=== PATIENT | female | born 1940 | race Caucasian/White ===

== ENCOUNTER 2019-05-07 12:47 | Inpatient (IN) ==
[2019-05-07] MEDS ORDERED: Acetaminophen 325 MG TABLET PO PRN (15:34)
[2019-05-07] MEDS ORDERED: Ondansetron 4 MG/2 ML VIAL IVP PRN (15:34)
[2019-05-07] MEDS ORDERED: Naloxone 0.4 MG/ML INJ IVP PRN (15:34)
[2019-05-07] MEDS ORDERED: Ringers Solution, Lactated 1,000 ML IVC SCH (15:45)
--- NOTE | 2019-05-07 15:49 | Internal Med History&Physical ---
Date of Encounter: 05/07/19 Time of Encounter: 15:00 Internal Medicine - H&P: HPI Chief complaint: Right elbow and hip fracture Admitted From: Direct Admit Plans for Post Hospital Care: Transfer Shelter Facility History of present illness: Ms. Wisdom is a 78 year old female with a past medical history of TIA, hypothyroidism, was brought to the [facility] from the outside hospital was because of the right elbow and the right hip fracture. Patient mentioned that he fell down in the morning as she was being slippery shoes, was on the floor for a long time, her grandson come to pick her up, took her to the hospital. She got the x-ray of the elbow which showed transverse fracture of the olecranon process. X-ray of the right hip showed subcapital transverse fracture of the right femoral neck. Distal fragment was displaced superiorly with respect to the proximal fragment. Patient was sent to the [facility] with consult from orthopedics. Patient is currently hemodynamically stable. The pain in the fracture site. Denies fever, chills, tinnitus. Denies chest pain, shortness of breath. Denies any previous medical history. Has been very healthy. Only takes levothyroxine at home. Is able to carry on her activities. Questionable history of congestive heart failure during one of the hospitalizations but is currently not on any medications. Patient laboratory reviewed. No gross lab abnormalities. Past Med Surg Social Fam HX - Past Medical History Medical history: TIA Additional medical history: TIA 2 weeks ago. hypothyroidism Psychiatric history: no psych history - Past Surgical History Surgical History: other Additional surgical history: Gastric bypass 30 years ago. L femur fracture with pinning. Cataracts removed. Lumbar fusion. R wrist surgery- fracture repaired - Social History Smoking Status: Never smoker Smokeless Tobacco Status: No Alcohol use: occasionally Drug use: none - Family History Brother Hx Family Musculoskeletal Disorders: Yes Internal Medicine - H&P: Meds Ascorbic Acid [Vitamin C] 1,000 mg PO DAILY 12/14/16 [History] Biotin 1 mg PO DAILY 12/14/16 [History] Calcium Carbonate [Calcium] 600 mg PO BID 12/14/16 [History] Levothyroxine [Synthroid] 125 mcg PO 0630 12/14/16 [History] Vit/Iron Fumarate/FA [ Tablet] 1 each PO DAILY 12/14/16 [History] Vitamin E Acid Succinate [Vitamin E] 400 units PO DAILY 12/14/16 [History] Allergy/AdvReac Type Severity Reaction Status Date / Time No Known Allergies Allergy Verified 12/14/16 08:11 All Systems PM: A 10-system review of systems was performed and is negative for pertinent findings except as documented above in the HPI. Review of systems: General: Negative for fever, chills, rigors. HEENT: Negative for neck swelling, discharge from nose, discharge from ears. EYES: Negative for any discharge from the eyes. Respiratory: Negative for shortness of breath, orthopnea, exertional dyspnea. Cardiovascular: Negative for chest pain, shortness of breath, orthopnea, PND. Gastrintestical: Negative for diarrhea, constipation, blood in stools. Genitourinary: Negative for dysuria, hematuria, nocturia, increased frequency of urine. Hematological: Negative for blood loss, negative for active cancer. Musculoskeltal: as per HPI Neurological: Negative for headache, dizziness, blurry vision, loss os power and sensations. Endocrinology: Negative for constipation, polyuria, polydipsia. Integumentary: Negative for rash, wounds, ulcers. Psychiatric: Negative for anxiety or depression. - Constitutional Vitals: Temp Pulse Resp BP 97.9 F 70 16 152/68 05/07/19 15:10 05/07/19 15:10 05/07/19 15:10 05/07/19 15:10 Exam: General: Alert and oriented, mild physical distress, able to follow commands. HEENT: No thyromegaly, no lymphadenopathy, no discharge. Eyes: No discharge. Normal conjuctiva, no icterus Respiratory: Normal vesicular breathing, no added sounds, breathing equal in both sides. CVS: Normal heart sounds, no murmurs, regular rhthm, no edema Extremities: No peripheral edema, peripheral pulses intact. Lymph nodes: No lymphadenopathy Musculoskeltal: Right arm wrapped, tenderness on palpation, range of motion limited because of the pain at the elbow joint. Right hip joint tenderness on lateral palpation. Range of motion limited because of the pain. Neurovascularly intact both upper and lower extremities Gastrointestinal: Soft, nontender abdomen, normal abdominal sounds. No distention noted. Genitourinary: No paravertebral tenderness. Neurological: Alert and oriented. No focal deficits. Cranial nerves II-XII intact. - Assessment and Plan (1) Elbow fracture, right Current Visit: Yes Status: Acute Assessment and plan: X-ray findings mentioned in history of present illness. Pain control. -Ortho on board patient currently nothing by mouth for any possible surgical interventions. Apreciate recommendations. Qualifiers: Encounter type: initial encounter Fracture type: closed Qualified Code(s): S42.401A - Unspecified fracture of lower end of right humerus, initial encounter for closed fracture (2) Femoral neck fracture Current Visit: Yes Status: Acute Assessment and plan: X-ray findings mentioned in the history of present illness. Pain control. Ortho on board. Patient is currently nothing by mouth for possible surgical interventions. Qualifiers: Encounter type: initial encounter Fracture type: closed Laterality: right Qualified Code(s): S72.001A - Fracture of unspecified part of neck of right femur, initial encounter for closed fracture (3) Hypothyroidism Current Visit: Yes Status: Acute Assessment and plan: Continue home dose of levothyroxine. Qualifiers: Hypothyroidism type: unspecified Qualified Code(s): E03.9 - Hypothyroidism, unspecified (4) DVT prophylaxis Current Visit: Yes Status: Acute Assessment and plan: Subcutaneous heparin (5) History of congestive heart disease Current Visit: Yes Status: Acute Assessment and plan: Questionable history of congestive heart failure. Currently not in decompensation. Takes no medication at home for congestive heart failure. Continue to monitor. - Time Spent With Patient Total time spent is greater than 50% in coordination of care (as documented) at patient's floor/unit and/or counseling patient:
[2019-05-07] MEDS: *HR* OxyCODONE Immed Rel 5 MG TABLET PO PRN (15:54)
[2019-05-07] MEDS: *HR* Heparin 5,000 UNIT/ML VIAL SQ SCH (17:16)
[2019-05-07] MEDS: *HR* HYDROcodone/Acet 5/325 mg TABLET PO PRN (19:20)
[2019-05-07] MEDS ORDERED: *HR* HYDROmorphone 2 MG TABLET PO ONE (20:57)
[2019-05-07 21:46] LABS: Basophils % 0.6 %; Hemoglobin 10.5 g/dL (11.5-15.4)
[2019-05-07 21:48] LABS: Basophils # 0.1 K/mcL (0.0-0.2); Eosinophils % 0.5 %; Hematocrit 32.5 % (35.3-44.9); Immature Granulocytes % 0.4 % (0-4); Immature Platelets 2.5 % (1.1-6.1); Lymphocytes # 0.9 K/mcL (0.6-4.6); Lymphocytes % 11.5 %; Mean Corpuscular HGB Conc 32.3 g/dL (31.6-35.5); Mean Corpuscular Hemoglobin 29.8 pg (28.0-33.3); Mean Corpuscular Volume 92.3 fL (83.0-100.0); Mean Platelet Volume 10.1 fL (9.4-12.4); Monocytes # 0.5 K/mcL (0.0-1.3); Monocytes % 6.7 %; Neutrophils # 6.3 K/mcL (1.6-8.9); Platelet Count 77 K/mcL (140-400); Red Blood Count 3.52 M/mcL (3.82-4.97); Red Cell Distribution Width 16.4 % (11.5-14.5); Segmented Neutrophils % 80.3 %; White Blood Count 7.8 K/mcL (4.3-11.1)
[2019-05-07 22:03] LABS: Alanine Aminotransferase 37 Units/L (7-52); Albumin/Globulin Ratio 0.9 (1.1-2.2); Alkaline Phosphatase 319 Units/L (34-104); Aspartate Amino Transferase 46 Units/L (13-39); BUN/Creatinine Ratio 19 (6-26); Bilirubin,Total 1.3 mg/dL (0.3-1.0); Blood Urea Nitrogen 18 mg/dL (8-23); Calcium 8.7 mg/dL (8.6-10.3); Carbon Dioxide 20 mEq/L (23-29); Chloride 110 mEq/L (98-107); Globulin 3.4 g/dL (2.4-3.5); Glucose 174 mg/dL (70-105); Osmolality,Calculated 282 (280-300); Potassium 4.1 mEq/L (3.5-5.1); Sodium 133 mEq/L (136-145); Total Protein 6.4 g/dL (6.4-8.9); eGFR For African Americans > 60 (> 60); eGFR For Non-African Americans 55 (> 60)
[2019-05-07 22:05] LABS: Platelet Estimate Decreased (Normal); Reactive Lymphocytes Present (Not Present); Toxic Granulation Present (Not Present)
--- NOTE | 2019-05-08 00:22 | Orthopedic Consult Note ---
Date of Encounter: 05/08/19 Time of Encounter: 00:17 History of Present Illness Chief complaint: Right elbow and right hip pain HPI: Ms. Young is a 78 year old [id number] female who sustained a mechanical fall resulting in injury to her right hip and right elbow. Patient presented initially to [facility] where x-rays taken revealed evidence of a right hip a right elbow fracture. She was transferred to [facility] to family patient's request for definitive orthopedic management. Patient denies other injuries. Patient denies dizziness vertigo blackouts etc. Reviewed the patient's completed medical record as well as the history and physical examination. Pertinent orthopedic examination reveals a pleasant 78-year-old woman in mild to moderate distress while lying in the hospital bed. Right upper extremity is in a long posterior splint. Distal neurosensory exam is grossly intact. Right lower extremity is shortened with minimal rotational deformity. Distal neurosensory exam is intact. I reviewed the right hip x-rays. This reveals a displaced right femoral neck fracture with marked shortening. X-rays of the right elbow reveal a comminuted and somewhat displaced fracture of the right olecranon. There is a large joint effusion. Impression: 1. Displaced right femoral neck fracture 2. Displaced, comminuted right olecranon fracture Recommendation: Discussed with the patient that both of these fractures will require surgical intervention for optimal treatment. I recommend a hemiart hroplasty of the right hip and ORIF of the right olecranon fracture. Discussed the surgical procedures as well as a surgical and nonoperative options available. I also discussed with the patient that I would not be available to proceed with the proposed surgery until . I am unavailable to proceed with the surgery today. I discussed with the patient and with the family who I spoke to via phone that we could see if another surgeon would be available to proceed with surgery on a more timely basis. The patient's daughter who has power of trademark attorney has requested that I proceed with the surgery with the time as noted on 05 09 2019. Thank you very much for allowing me to seen care for Mrs. Young. Sincerely, Abel James,DO Past Med Surg Social Fam HX - Past Medical History Medical history: TIA Additional medical history: TIA 2 weeks ago. hypothyroidism Psychiatric history: no psych history - Past Surgical History Surgical History: other Additional surgical history: Gastric bypass 30 years ago. L femur fracture with pinning. Cataracts removed. Lumbar fusion. R wrist surgery- fracture repaired - Social History Smoking Status: Never smoker Smokeless Tobacco Status: No Alcohol use: occasionally Drug use: none - Family History Brother Hx Family Musculoskeletal Disorders: Yes Medications and Allergies Ascorbic Acid [Vitamin C] 1,000 mg PO DAILY 12/14/16 [History] Biotin 1 mg PO DAILY 12/14/16 [History] Calcium Carbonate [Calcium] 600 mg PO BID 12/14/16 [History] Levothyroxine [Synthroid] 125 mcg PO 0630 12/14/16 [History] Vit/Iron Fumarate/FA [ Tablet] 1 each PO DAILY 12/14/16 [History] Vitamin E Acid Succinate [Vitamin E] 400 units PO DAILY 12/14/16 [History] Allergy/AdvReac Type Severity Reaction Status Date / Time No Known Allergies Allergy Verified 12/14/16 08:11 All Systems Reviewed: The remainder of the systems were reviewed and are negative Physical Exam - Constitutional Vitals: Temp Pulse Resp BP Pulse Ox 98.8 F 78 18 159/87 96 05/07/19 23:11 05/07/19 23:11 05/07/19 23:11 05/07/19 23:11 05/07/19 23:11 Results - Labs Result Diagrams: 05/07/19 21:20 05/07/19 21:20 Labs: Abnormal lab results RBC 3.52 M/mcL (3.82-4.97) L 05/07/19 21:20 Hgb 10.5 g/dL (11.5-15.4) L 05/07/19 21:20 Hct 32.5 % (35.3-44.9) L 05/07/19 21:20 RDW 16.4 % (11.5-14.5) H 05/07/19 21:20 Plt Count 77 K/mcL (140-400) L 05/07/19 21:20 Reactive Lymphocytes Present (Not Present) A 05/07/19 21:20 Toxic Granulation Present (Not Present) A 05/07/19 21:20 Platelet Estimate Decreased (Normal) L 05/07/19 21:20 Sodium 133 mEq/L (136-145) L 05/07/19 21:20 Chloride 110 mEq/L (98-107) H 05/07/19 21:20 Carbon Dioxide 20 mEq/L (23-29) L 05/07/19 21:20 Est GFR (Non-Af Amer) 55 (> 60) L 05/07/19 21:20 Glucose 174 mg/dL (70-105) H 05/07/19 21:20 Total Bilirubin 1.3 mg/dL (0.3-1.0) H 05/07/19 21:20 AST 46 Units/L (13-39) H 05/07/19 21:20 Alkaline Phosphatase 319 Units/L (34-104) H 05/07/19 21:20 B-Natriuretic Peptide 259 pg/mL (Less than 100) H 05/07/19 21:20 Albumin 3.0 g/dL (3.5-5.7) L 05/07/19 21:20 Albumin/Globulin Ratio 0.9 (1.1-2.2) L 05/07/19 21:20 H & H 05/07/19 Range/Units 21:20 Hgb 10.5 L (11.5-15.4) g/dL Hct 32.5 L (35.3-44.9) % All other labs normal. - Diagnostic results Elbow x-ray: image reviewed Hip x-ray: image reviewed Consult Discharge Plan - Plan Referrals: aMrcus Mendoza DO [Primary Care Provider] -
[2019-05-08] MEDS: *HR* OxyCODONE Immed Rel 5 MG TABLET PO PRN ×3 (01:43→21:29)
[2019-05-08] MEDS: *HR* Heparin 5,000 UNIT/ML VIAL SQ SCH ×2 (05:35→19:23)
[2019-05-08 06:44] LABS: BUN/Creatinine Ratio 23 (6-26); Blood Urea Nitrogen 19 mg/dL (8-23); Calcium 8.6 mg/dL (8.6-10.3); Carbon Dioxide 21 mEq/L (23-29); Chloride 108 mEq/L (98-107); Glucose 125 mg/dL (70-105); Magnesium 1.7 mg/dL (1.6-2.6); Osmolality,Calculated 288 (280-300); Potassium 4.7 mEq/L (3.5-5.1); Sodium 137 mEq/L (136-145); eGFR For African Americans > 60 (> 60); eGFR For Non-African Americans > 60 (> 60)
[2019-05-08] MEDS ORDERED: cloNIDine HCl 0.1 MG TABLET PO PRN (07:51)
[2019-05-08] MEDS ORDERED: NON-FORMULARY MEDICATION 1 EACH EACH (Biotin 1 MG) PO SCH (09:00)
[2019-05-08] MEDS: Prenatal Vit/FA 1 EACH TABLET PO SCH (09:02)
[2019-05-08] MEDS: Ascorbic Acid 500 MG TABLET PO SCH (09:02)
[2019-05-08] MEDS: Vitamin E 200 UNIT (90MG) CAPSULE PO SCH (09:02)
[2019-05-08 09:29] LABS: Red Blood Count 3.46 M/mcL (3.82-4.97)
[2019-05-08 09:30] LABS: Basophils % 0.5 %; Eosinophils # 0.1 K/mcL (0.0-0.6); Hematocrit 31.7 % (35.3-44.9); Hemoglobin 10.4 g/dL (11.5-15.4); Immature Granulocytes % 0.3 % (0-4); Immature Platelets 2.7 % (1.1-6.1); Lymphocytes # 1.1 K/mcL (0.6-4.6); Mean Corpuscular HGB Conc 32.8 g/dL (31.6-35.5); Mean Corpuscular Hemoglobin 30.1 pg (28.0-33.3); Mean Corpuscular Volume 91.6 fL (83.0-100.0); Mean Platelet Volume 10.2 fL (9.4-12.4); Monocytes # 0.8 K/mcL (0.0-1.3); Monocytes % 9.9 %; Neutrophils # 5.7 K/mcL (1.6-8.9); Red Cell Distribution Width 16.1 % (11.5-14.5); Segmented Neutrophils % 74.3 %; White Blood Count 7.7 K/mcL (4.3-11.1)
[2019-05-08 09:34] LABS: Platelet Count 69 K/mcL (140-400)
--- NOTE | 2019-05-08 12:30 | Internal Med Progress Note ---
Hospitalist Progress Note - Encounter Date of Encounter: 05/08/19 Time of Encounter: 10:00 - Subjective Interval History: Seen at bedside. Mentions that the pain is under control. Plan for the surgery tomorrow. Blood pressure was found to be high but the patient denies any headache, double vision. Denies chest pain, shortness of breath. - Exam Vitals: Temp Pulse Resp BP Pulse Ox 98.1 F 70 16 170/81 96 05/08/19 06:50 05/08/19 06:50 05/08/19 06:50 05/08/19 06:50 05/08/19 06:50 Exam: General: Alert and oriented, mild physical distress, able to follow commands. Respiratory: Normal vesicular breathing, no added sounds, breathing equal in both sides. CVS: Normal heart sounds, no murmurs, regular rhthm, no edema Extremities: No peripheral edema, peripheral pulses intact. Lymph nodes: No lymphadenopathy Musculoskeltal: Right arm wrapped, tenderness on palpation, range of motion limited because of the pain at the elbow joint. Right hip joint tenderness on lateral palpation. Range of motion limited because of the pain. Neurovascularly intact both upper and lower extremities Gastrointestinal: Soft, nontender abdomen, normal abdominal sounds. No distention noted. Genitourinary: No paravertebral tenderness. Neurological: Alert and oriented. No focal deficits. Cranial nerves II-XII intact. - Assessment and Plan (1) Elbow fracture, right Current Visit: Yes Status: Acute Assessment and Plan: X-ray of the right elbow reveal a comminuted and displaced fracture of the right olecranon. Pain control. -Ortho on board. Plan for surgery tomorrow -NPO after midnight (2) Femoral neck fracture Current Visit: Yes Status: Acute Assessment and Plan: X-ray reveals a displaced right femoral neck fracture Pain control. Ortho on board. Plan for surgery tomorrow NPO post midnith (3) Hypothyroidism Current Visit: Yes Status: Acute Assessment and Plan: Continue home dose of levothyroxine. (4) DVT prophylaxis Current Visit: Yes Status: Acute Assessment and Plan: Subcutaneous heparin (5) History of congestive heart disease Current Visit: Yes Status: Acute Assessment and Plan: Questionable history of congestive heart failure. Currently not in decompensation. Takes no medication at home for congestive heart failure. Continue to monitor. (6) Elevated blood pressure reading Current Visit: Yes Status: Acute Assessment and Plan: -blood pressure has been high in the hospital. Does not have any hx of hypertension COuld be related to the pain Clonidine as needed for elevated blood pressure - Time Spent with Patient Total time spent is greater than 50% in coordination of care (as documented) at patient's floor/unit and/or counseling patient: Internal Medicine: Result - Labs CBC & Chem 7: 05/08/19 08:50 05/08/19 06:10 Labs: Short CBC 05/07/19 05/08/19 Range/Units 21:20 08:50 WBC 7.8 7.7 (4.3-11.1) K/mcL Hgb 10.5 L 10.4 L (11.5-15.4) g/dL Hct 32.5 L 31.7 L (35.3-44.9) % Plt Count 77 L 69 L (140-400) K/mcL Neutrophils # 6.3 5.7 (1.6-8.9) K/mcL BMP 05/07/19 05/08/19 21:20 06:10 Sodium 133 L 137 Potassium 4.1 4.7 Chloride 110 H 108 H Carbon Dioxide 20 L 21 L BUN 18 19 Creatinine 0.97 0.83 Glucose 174 H 125 H Calcium 8.7 8.6 Liver Function 05/07/19 Range/Units 21:20 Total Bilirubin 1.3 H (0.3-1.0) mg/dL AST 46 H (13-39) Units/L ALT 37 (7-52) Units/L Alkaline Phosphatase 319 H (34-104) Units/L Albumin 3.0 L (3.5-5.7) g/dL - Impressions Impressions Ribs X-Ray 05/07/19 21:32 IMPRESSION: No acute right-sided rib fractures are seen. D/ / Humphrey Luz MD / Humphrey Luz MD Interpreting Provider: Humphrey Luz MD Consult Discharge Plan - Plan Referrals: Marcus Mendoza DO [Primary Care Provider] - (1) Elbow fracture, right Qualifiers: Encounter type: initial encounter Fracture type: closed Qualified Code(s): S42.401A - Unspecified fracture of lower end of right humerus, initial encounter for closed fracture (2) Femoral neck fracture Qualifiers: Encounter type: initial encounter Fracture type: closed Laterality: right Qualified Code(s): S72.001A - Fracture of unspecified part of neck of right femur, initial encounter for closed fracture (3) Hypothyroidism Qualifiers: Hypothyroidism type: unspecified Qualified Code(s): E03.9 - Hypothyroidism, unspecified
[2019-05-08] MEDS: *HR* HYDROcodone/Acet 5/325 mg TABLET PO PRN (13:46)
--- NOTE | 2019-05-08 23:14 | Orthopedics Progress Note ---
Date of Encounter: 05/08/19 Time of Encounter: 23:11 Subjective Principal diagnosis: Displaced right femoral neck fracture and displaced right olecranon fractur Interval history: 05/08/2019. Patient is having anticipated pain. No significant interval change. Vital signs are stable. Patient is afebrile. Examination remains stable and unchanged. Laboratory data includes a stable hemoglobin, however, patient's platelet count remains low currently at 69,000. Impression: 1. Displaced right femoral neck fracture 2. Displaced right olecranon fracture 3. Thrombocytopenia Recommendation: Anticipate surgery tomorrow. This would include ORIF of the olecranon as well as a hemiarthroplasty of the right hip. We will need to reevaluate the platelet count in the morning. May need to cancel her delay surgery depending upon her platelet count with the possibility of requiring platelet transfusion. Objective Vital signs: Vital Signs Temp Pulse Resp BP Pulse Ox 05/08/19 18:54 99.1 F 72 16 130/75 98 05/08/19 18:20 98.7 F 71 20 123/66 96 05/08/19 06:50 98.1 F 70 16 170/81 96 05/08/19 03:36 98.8 F 66 17 152/82 96 Intake and Output 05/08/19 05/08/19 05/08/19 07:59 15:59 23:59 Output Total 600 / 1100 500 / 1100 Balance -600 / -1100 -500 / -1100 Output: Catheter 600 / 1100 500 / 1100 - Labs CBC & BMP: 05/08/19 08:50 05/08/19 06:10 Labs: Abnormal lab results RBC 3.46 M/mcL (3.82-4.97) L 05/08/19 08:50 Hgb 10.4 g/dL (11.5-15.4) L 05/08/19 08:50 Hct 31.7 % (35.3-44.9) L 05/08/19 08:50 RDW 16.1 % (11.5-14.5) H 05/08/19 08:50 Plt Count 69 K/mcL (140-400) L 05/08/19 08:50 Reactive Lymphocytes Present (Not Present) A 05/07/19 21:20 Toxic Granulation Present (Not Present) A 05/07/19 21:20 Platelet Estimate Decreased (Normal) L 05/07/19 21:20 Sodium 133 mEq/L (136-145) L 05/07/19 21:20 Chloride 108 mEq/L (98-107) H 05/08/19 06:10 Carbon Dioxide 21 mEq/L (23-29) L 05/08/19 06:10 Est GFR (Non-Af Amer) 55 (> 60) L 05/07/19 21:20 Glucose 125 mg/dL (70-105) H 05/08/19 06:10 Total Bilirubin 1.3 mg/dL (0.3-1.0) H 05/07/19 21:20 AST 46 Units/L (13-39) H 05/07/19 21:20 Alkaline Phosphatase 319 Units/L (34-104) H 05/07/19 21:20 B-Natriuretic Peptide 259 pg/mL (Less than 100) H 05/07/19 21:20 Albumin 3.0 g/dL (3.5-5.7) L 05/07/19 21:20 Albumin/Globulin Ratio 0.9 (1.1-2.2) L 05/07/19 21:20 - VTE Documentation of Mechanical Device: Intermittent pneumatic compression device Consult Discharge Plan - Plan Referrals: Marcus Mendoza DO [Primary Care Provider] -
[2019-05-09] MEDS: *HR* Heparin 5,000 UNIT/ML VIAL SQ SCH (04:55)
[2019-05-09 06:01] LABS: Segmented Neutrophils % 68.4 %
[2019-05-09 06:03] LABS: Basophils # 0.1 K/mcL (0.0-0.2); Basophils % 0.6 %; Eosinophils # 0.3 K/mcL (0.0-0.6); Eosinophils % 3.5 %; Hematocrit 31.8 % (35.3-44.9); Hemoglobin 10.4 g/dL (11.5-15.4); Immature Granulocytes % 0.5 % (0-4); Immature Platelets 3.3 % (1.1-6.1); Lymphocytes # 1.3 K/mcL (0.6-4.6); Lymphocytes % 15.6 %; Mean Corpuscular HGB Conc 32.7 g/dL (31.6-35.5); Mean Corpuscular Hemoglobin 29.9 pg (28.0-33.3); Mean Corpuscular Volume 91.4 fL (83.0-100.0); Monocytes # 0.9 K/mcL (0.0-1.3); Monocytes % 11.4 %; Neutrophils # 5.6 K/mcL (1.6-8.9); Red Blood Count 3.48 M/mcL (3.82-4.97); White Blood Count 8.2 K/mcL (4.3-11.1)
[2019-05-09 06:14] LABS: Platelet Count 65 K/mcL (140-400)
[2019-05-09] MEDS: Prenatal Vit/FA 1 EACH TABLET PO SCH (08:16)
[2019-05-09] MEDS: Ascorbic Acid 500 MG TABLET PO SCH (08:16)
[2019-05-09] MEDS: Vitamin E 200 UNIT (90MG) CAPSULE PO SCH (08:16)
[2019-05-09] MEDS: *HR* OxyCODONE Immed Rel 5 MG TABLET PO PRN ×2 (08:20→21:15)
[2019-05-09] MEDS ORDERED: 0.9 % Sodium Chloride 250 ML IVC SCH (09:30)
[2019-05-09 09:32] LABS: Immature Reticulocyte % 14.7 % (11.0-38.0); Retculocyte # 0.08 M/mcL (0.05-0.10); Reticulocyte % 2.1 % (1.6-2.8)
--- NOTE | 2019-05-09 09:36 | Oncology Inp Consult Note ---
<Bethany Sommers M - Last Filed: 05/09/19 17:55> Date of Encounter: 05/09/19 Time of Encounter: 09:32 Assessment and Plan (1) Thrombocytopenia Status: Acute Assessment and plan: Plts 65,000 today. Requiring ortho surgery for fracture of right femoral neck. 2017 platelet 112,000 Plan: Labs ordered: LDH, haptoglobin, retic PT/INR, PTT, fibrinogen/D-dimer peripheral smear Hepatitis panel B12 and folate. Imaging ordered: abdominal ultrasound of liver and spleen 2 units platelet ordered for today. Patient denies history of blood or platelet transfusion in the past. - Data of Consult Patient: new to practice Requesting Physician: Weston Long Primary Care Provider: Marcus Mendoza DO - Consult Narrative Reason for consult: thrombocytopenia History of present illness: Ms. Wisdom, 78 yo female with known history of TIA, HTN, and hypothyroidism, presented to [facility] ([facility]) after she slipped and fell on her right side. The x-ray of her right elbow noted a transverse fracture of the olecranon process and her xray of the pelvis noted a subcapital transverse fract ure of the right femoral neck. She was transferred to [facility] for an orthopedic consult on 05/07/19. During routine labs, it was noted that she had thrombocytopenia with PLTS 77,000. Repeat labs this morning note a drop in platelets to 65,000. Hematology/Oncology was consulted for recommendations of thrombocytopenia due to need for orthopedic procedure. Sharla is awake and alert in bed this morning. She notes that she has a poor memory and unable to contribute much to her medical history. She does confirm that she has a history of high blood pressure, but does not require medication any longer. She also can describe her slip while getting up for the table to retrieve her morning medications. Sharla notes that she did have a fall on ice a few years ago and had a left femur fracture. She states that her pain is controlled after her pain medication one hour ago. Sharla notes that her daughter will return this afternoon and she can assist with her medical history. Discussed recommendations for platelet transfusion today. She is agreeable to transfusion and denies previous transfusion history. Social history: Denies tobacco or illicit drug use. Does have an occasional alcoholic beverage. Lives in [place], [place] with daughter. PCP: Dr. Mendoza in [place] Past Med Surg Social Fam HX - Past Medical History Medical history: TIA Additional medical history: TIA 2 weeks ago. hypothyroidism Psychiatric history: no psych history - Past Surgical History Surgical History: other Additional surgical history: Gastric bypass 30 years ago. L femur fracture with pinning. Cataracts removed. Lumbar fusion. R wrist surgery- fracture repaired - Social History Smoking Status: Never smoker Smokeless Tobacco Status: No Alcohol use: occasionally Drug use: none - Family History Brother Hx Family Musculoskeletal Disorders: Yes Medications and Allergies Ascorbic Acid [Vitamin C] 1,000 mg PO DAILY 12/14/16 [History] Biotin 1 mg PO DAILY 12/14/16 [History] Calcium Carbonate [Calcium] 600 mg PO BID 12/14/16 [History] Vit/Iron Fumarate/FA [ Tablet] 1 each PO DAILY 12/14/16 [History] Vitamin E Acid Succinate [Vitamin E] 400 units PO DAILY 12/14/16 [History] Cyanocobalamin (B-12) [Vitamin B12] 1,000 mcg IM QMONTH 05/08/19 [History] Levothyroxine [Synthroid] 125 mcg PO 0630 05/08/19 [History] Allergy/AdvReac Type Severity Reaction Status Date / Time No Known Allergies Allergy Verified 05/08/19 09:40 Constitutional: Absent: chills, fatigue, fever(s) Cardiovascular: Absent: chest pain, dyspnea Respiratory: Absent: cough, dyspnea Gastrointestinal: Absent: abdominal pain, constipation, diarrhea, nausea, vomiting Additional comments: Right hip pain due to femur fracture and right elbow pain Additional comments: easy bruising Oncology - Exam - Constitutional General appearance: no acute distress, thin - Respiratory Respiratory exam: Present: CTAB - Cardiovascular Cardiovascular exam: Present: RRR Additional comments: murmur detected - GI/Abdominal GI/Abdominal exam: Present: normal bowel sounds, soft. Absent: tenderness - Extremities Exam Extremities exam: Absent: pedal edema - Neurological Exam Neurological exam: Present: alert, oriented X3 - Psychiatric Psychiatric exam: Present: normal affect, normal mood - Skin Skin exam: Present: pallor, warm Additional comments: LUE bruising Oncology Inpatient Results Labs: Laboratory Results - last 24 hr 05/09/19 05/09/19 05/09/19 05:09 07:18 09:12 WBC 8.2 RBC 3.48 L Hgb 10.4 L Hct 31.8 L MCV 91.4 MCH 29.9 MCHC 32.7 RDW 16.0 H Plt Count 65 L MPV 11.0 Reticulocyte # 0.08 Immature Gran % 0.5 Seg Neutrophils % 68.4 Lymphocytes % 15.6 Monocytes % 11.4 Eosinophils % 3.5 Basophils % 0.6 Neutrophils # 5.6 Lymphocytes # 1.3 Monocytes # 0.9 Eosinophils # 0.3 Basophils # 0.1 Immature Plt Fraction 3.3 Smear Path Review See Below Percent Retic 2.1 Immature Retic Fraction 14.7 Retic Hgb Equivalent 33.1 PT INR APTT Fibrinogen D-Dimer Lactate Dehydrogenase Vitamin B12 Folate Hepatitis A IgM Ab Hep Bs Antigen Hep B Core IgM Ab Hepatitis C Ab Screen Blood Type A POSITIVE Antibody Screen NEGATIVE Direct Antiglob Test DAVID, Poly Interpret 05/09/19 05/09/19 05/09/19 09:12 09:12 09:12 WBC RBC Hgb Hct MCV MCH MCHC RDW Plt Count MPV Reticulocyte # Immature Gran % Seg Neutrophils % Lymphocytes % Monocytes % Eosinophils % Basophils % Neutrophils # Lymphocytes # Monocytes # Eosinophils # Basophils # Immature Plt Fraction Smear Path Review Percent Retic Immature Retic Fraction Retic Hgb Equivalent PT 11.8 INR 1.0 APTT 28.3 Fibrinogen 469 H D-Dimer 4706 H Lactate Dehydrogenase 145 Vitamin B12 710 Folate > 22.3 H Hepatitis A IgM Ab Nonreactive Hep Bs Antigen Nonreactive Hep B Core IgM Ab Nonreactive Hepatitis C Ab Screen Nonreactive Blood Type Antibody Screen Direct Antiglob Test DAVID, Poly Interpret 05/09/19 09:12 WBC RBC Hgb Hct MCV MCH MCHC RDW Plt Count MPV Reticulocyte # Immature Gran % Seg Neutrophils % Lymphocytes % Monocytes % Eosinophils % Basophils % Neutrophils # Lymphocytes # Monocytes # Eosinophils # Basophils # Immature Plt Fraction Smear Path Review Percent Retic Immature Retic Fraction Retic Hgb Equivalent PT INR APTT Fibrinogen D-Dimer Lactate Dehydrogenase Vitamin B12 Folate Hepatitis A IgM Ab Hep Bs Antigen Hep B Core IgM Ab Hepatitis C Ab Screen Blood Type Antibody Screen Direct Antiglob Test 1+ A DAVID, Poly Interpret 1+ Ribs X-Ray 05/07/19 21:32 IMPRESSION: No acute right-sided rib fractures are seen. D/ / Humphrey Luz MD / Humphrey Luz MD Interpreting Provider: Humphrey Luz MD Abdomen Ultrasound 05/09/19 13:30 IMPRESSION: 1. Technically limited secondary to patient's immobility. 2. Splenomegaly. 3. Heterogeneous liver which can be seen in hepatocellular disease. 4. Cholecystectomy. The common bile duct is mildly prominent measuring 10 mm. D/ / 05/09/2019 14:23:13 Marlena García MD / [facility] Interpreting Provider: Marlena García MD Consult Discharge Plan - Plan Referrals: Marcus Mendoza DO [Primary Care Provider] - Inpatient Charges Provider: Dr. Juan Monzon <Amy Monzon - Last Filed: 05/10/19 06:34> Date of Encounter: 05/10/19 - Data of Consult Requesting Physician: Weston Long Primary Care Provider: Marcus Mendoza DO - Consult Narrative History of present illness: Patient with thrombocytopenia, cirrhosis on imagingand splenomegaly with recent fall and fracture needing surgery. Anemia multifactorial, transfuse blood products prior to planned surgical procedure to keep platelt at desired levels for hemostasis. Coag panel nl. Plan scope outpatient to further evaluate cirrhosis splenomegaly. I examined this patient and my medical decision-making was reviewed with the Advanced Practice Nurse, Bethany Sommers. I agree with the documented findings, disposition and treatment plan as described except to the extent set forth below.
[2019-05-09 10:29] LABS: Prothrombin Time 11.8 Seconds (9.4-12.1)
[2019-05-09 10:31] LABS: Activated Partial Thrombo Time 28.3 Seconds (26.0-36.0)
[2019-05-09 10:35] LABS: Folate > 22.3 ng/mL (3.0-16.0); Vitamin B12 710 pg/mL (250-1100)
[2019-05-09] MEDS ORDERED: 0.9 % Sodium Chloride 250 ML ONE ×2 (10:52→16:24)
--- NOTE | 2019-05-09 12:02 | Internal Med Progress Note ---
Hospitalist Progress Note - Encounter Date of Encounter: 05/09/19 Time of Encounter: 09:00 - Subjective Interval History: She was seen at bedside. Mentioned that the pain is well controlled. Patient platelet count continues to be low. Oncology was consulted overnight. Denies fever, chills, rigors. He was initially scheduled to get surgery today but because of the platelet count, might have to get delayed until tomorrow. No other overnight events. - Exam Vitals: Temp Pulse Resp BP Pulse Ox 98.8 F 61 16 110/61 98 05/09/19 11:25 05/09/19 11:25 05/09/19 11:25 05/09/19 11:25 05/09/19 11:25 Exam: General: Alert and oriented, mild physical distress, able to follow commands. Respiratory: Normal vesicular breathing, no added sounds, breathing equal in both sides. CVS: Normal heart sounds, no murmurs, regular rhthm, no edema Extremities: No peripheral edema, peripheral pulses intact. Lymph nodes: No lymphadenopathy Musculoskeltal: Right arm wrapped, tenderness on palpation, range of motion limited because of the pain at the elbow joint. Right hip joint tenderness on lateral palpation. Range of motion limited because of the pain. Neurovascu larly intact both upper and lower extremities Gastrointestinal: Soft, nontender abdomen, normal abdominal sounds. No distention noted. Genitourinary: No paravertebral tenderness. Neurological: Alert and oriented. No focal deficits. Cranial nerves II-XII intact. - Assessment and Plan (1) Elbow fracture, right Current Visit: Yes Status: Acute Assessment and Plan: X-ray of the right elbow reveal a comminuted and displaced fracture of the right olecranon. Pain control. -Ortho on board. -Likely to get the surgery after the evaluation regarding a thrombocytopenia. (2) Femoral neck fracture Current Visit: Yes Status: Acute Assessment and Plan: X-ray reveals a displaced right femoral neck fracture Pain control. Ortho on board. Likely to get surgery following evaluation regarding thrombocytopenia (3) Hypothyroidism Current Visit: Yes Status: Acute Assessment and Plan: Continue home dose of levothyroxine. (4) DVT prophylaxis Current Visit: Yes Status: Acute Assessment and Plan: Subcutaneous heparin (5) History of congestive heart disease Current Visit: Yes Status: Acute Assessment and Plan: Questionable history of congestive heart failure. Currently not in decompensation. Takes no medication at home for congestive heart failure. Continue to monitor. (6) Elevated blood pressure reading Current Visit: Yes Status: Acute Assessment and Plan: -Blood pressure is stable. No Interventions. (7) Thrombocytopenia Current Visit: Yes Status: Acute Assessment and Plan: [place] [address] [place]. Oncology was consulted, labwork was ordered by the oncology. Patient may get2 units of pooled plateles today as per oncology recommendations. If the patient platelet count remained stable, likely surgery tomorrow. Abdominal ultrasound of the liver and spleen has been ordered. - Time Spent with Patient Total time spent is greater than 50% in coordination of care (as documented) at patient's floor/unit and/or counseling patient: Internal Medicine: Result - Labs CBC & Chem 7: 05/09/19 05:09 05/08/19 06:10 Labs: Short CBC 05/09/19 Range/Units 05:09 WBC 8.2 (4.3-11.1) K/mcL Hgb 10.4 L (11.5-15.4) g/dL Hct 31.8 L (35.3-44.9) % Plt Count 65 L (140-400) K/mcL Neutrophils # 5.6 (1.6-8.9) K/mcL - ABG Interpretation ABG results: PT/INR, D-dimer PT 11.8 Seconds (9.4-12.1) 05/09/19 09:12 D-Dimer 4706 ng/mLFEU (0-500) H 05/09/19 09:12 - VTE Documentation of Mechanical Device: Intermittent pneumatic compression device Consult Discharge Plan - Plan Referrals: Marcus Mendoza DO [Primary Care Provider] - (1) Elbow fracture, right Qualifiers: Encounter type: initial encounter Fracture type: closed Qualified Code(s): S42.401A - Unspecified fracture of lower end of right humerus, initial encounter for closed fracture (2) Femoral neck fracture Qualifiers: Encounter type: initial encounter Fracture type: closed Laterality: right Qualified Code(s): S72.001A - Fracture of unspecified part of neck of right femur, initial encounter for closed fracture (3) Hypothyroidism Qualifiers: Hypothyroidism type: unspecified Qualified Code(s): E03.9 - Hypothyroidism, unspecified
[2019-05-09 13:04] LABS: Hepatitis B Surface Antigen Nonreactive (Nonreactive)
[2019-05-09 13:33] LABS: Hepatitis C Virus Antibody Nonreactive (Nonreactive)
[2019-05-09 13:34] LABS: Hepatitis B Core IgM Nonreactive (Nonreactive)
[2019-05-09 13:37] LABS: Hepatitis A Antibody IgM Nonreactive (Nonreactive)
[2019-05-09 22:23] LABS: Basophils % 0.2 %; Eosinophils # 0.1 K/mcL (0.0-0.6); Eosinophils % 1.5 %; Hematocrit 29.4 % (35.3-44.9); Hemoglobin 9.5 g/dL (11.5-15.4); Immature Granulocytes % 0.4 % (0-4); Lymphocytes # 1.1 K/mcL (0.6-4.6); Lymphocytes % 12.2 %; Mean Corpuscular HGB Conc 32.3 g/dL (31.6-35.5); Mean Corpuscular Hemoglobin 30.3 pg (28.0-33.3); Mean Corpuscular Volume 93.6 fL (83.0-100.0); Mean Platelet Volume 10.5 fL (9.4-12.4); Monocytes % 11.1 %; Neutrophils # 6.8 K/mcL (1.6-8.9); Platelet Count 93 K/mcL (140-400); Red Blood Count 3.14 M/mcL (3.82-4.97); Red Cell Distribution Width 15.8 % (11.5-14.5); Segmented Neutrophils % 74.6 %; White Blood Count 9.1 K/mcL (4.3-11.1)
--- NOTE | 2019-05-10 00:32 | Orthopedics Progress Note ---
Date of Encounter: 05/10/19 Time of Encounter: 00:29 Subjective Principal diagnosis: Displaced right femoral neck fracture and displaced right olecranon fractur Interval history: 05/08/2019. Patient is having anticipated pain. No significant interval change. Vital signs are stable. Patient is afebrile. Examination remains stable and unchanged. Laboratory data includes a stable hemoglobin, however, patient's platelet count remains low currently at 69,000. Impression: 1. Displaced right femoral neck fracture 2. Displaced right olecranon fracture 3. Thrombocytopenia Recommendation: Anticipate surgery tomorrow. This would include ORIF of the olecranon as well as a hemiarthroplasty of the right hip. We will need to reevaluate the platelet count in the morning. May need to cancel her delay surgery depending upon her platelet count with the possibility of requiring platelet transfusion. 05/09/2019. Surgery was canceled due to thrombocytopenia. Patient has been seen and evaluated by he involved. Patient did receive 2 units of platelets with a increase in platelet count from 66-93. Hemoglobin has unfortunately dropped from 10.5-9.5 in this interval. We will reevaluate platelet count in a.m. Tentatively for surgery tomorrow. Surgery will include both ORIF of the right olecranon as well as a hemiarthroplasty of the right hip. Objective Vital signs: Vital Signs Temp Pulse Resp BP Pulse Ox 05/10/19 00:19 98.3 F 73 132/75 98 05/09/19 20:33 98.8 F 70 115/61 96 05/09/19 19:41 98.9 F 75 15 128/68 93 05/09/19 16:55 99.2 F 76 17 101/47 95 05/09/19 16:40 100.2 F H 78 16 102/55 94 05/09/19 14:30 98.1 F 69 16 136/81 98 05/09/19 11:25 98.8 F 61 16 110/61 98 05/09/19 11:10 98.3 F 77 16 93/47 100 05/09/19 07:01 99.2 F 71 16 158/69 96 05/09/19 04:31 99.5 F 05/09/19 03:49 95.5 F L 70 18 142/70 94 Intake and Output 05/09/19 05/09/19 05/10/19 15:59 23:59 07:59 Intake Total 450 / 1615 1165 / 1615 0 / 0 Output Total 700 / 950 325 / 325 Balance 450 / 665 465 / 665 -325 / -325 Intake: Oral 840 / 840 0 / 0 Blood Product 450 / 775 325 / 775 Platelet Ph Acd-A Pasc Lp 2 325 / 325 Unit [id number] Platelet Pheresis Lp Unit 450 / 450 [id number] Output: Catheter 700 / 950 325 / 325 Other: Meal Dinner Percent of Meal Consumed 50% - Labs CBC & BMP: 05/09/19 21:59 05/08/19 06:10 Labs: Abnormal lab results RBC 3.14 M/mcL (3.82-4.97) L 05/09/19 21:59 Hgb 9.5 g/dL (11.5-15.4) L 05/09/19 21:59 Hct 29.4 % (35.3-44.9) L 05/09/19 21:59 RDW 15.8 % (11.5-14.5) H 05/09/19 21:59 Plt Count 93 K/mcL (140-400) L 05/09/19 21:59 Reactive Lymphocytes Present (Not Present) A 05/07/19 21:20 Toxic Granulation Present (Not Present) A 05/07/19 21:20 Platelet Estimate Decreased (Normal) L 05/07/19 21:20 Fibrinogen 469 mg/dL (169-393) H 05/09/19 09:12 D-Dimer 4706 ng/mLFEU (0-500) H 05/09/19 09:12 Sodium 133 mEq/L (136-145) L 05/07/19 21:20 Chloride 108 mEq/L (98-107) H 05/08/19 06:10 Carbon Dioxide 21 mEq/L (23-29) L 05/08/19 06:10 Est GFR (Non-Af Amer) 55 (> 60) L 05/07/19 21:20 Glucose 125 mg/dL (70-105) H 05/08/19 06:10 Total Bilirubin 1.3 mg/dL (0.3-1.0) H 05/07/19 21:20 AST 46 Units/L (13-39) H 05/07/19 21:20 Alkaline Phosphatase 319 Units/L (34-104) H 05/07/19 21:20 B-Natriuretic Peptide 259 pg/mL (Less than 100) H 05/07/19 21:20 Albumin 3.0 g/dL (3.5-5.7) L 05/07/19 21:20 Albumin/Globulin Ratio 0.9 (1.1-2.2) L 05/07/19 21:20 Folate > 22.3 ng/mL (3.0-16.0) H 05/09/19 09:12 Direct Antiglob Test 1+ (Negative) A 05/09/19 09:12 - VTE Documentation of Mechanical Device: Intermittent pneumatic compression device Consult Discharge Plan - Plan Referrals: Marcus Mendoza DO [Primary Care Provider] -
[2019-05-10 02:45] LABS: Hematocrit 30.1 % (35.3-44.9)
[2019-05-10 02:47] LABS: Hemoglobin 9.6 g/dL (11.5-15.4); Immature Platelets 3.7 % (1.1-6.1); Mean Corpuscular HGB Conc 31.9 g/dL (31.6-35.5); Mean Corpuscular Hemoglobin 29.5 pg (28.0-33.3); Mean Corpuscular Volume 92.6 fL (83.0-100.0); Mean Platelet Volume 11.3 fL (9.4-12.4); Red Blood Count 3.25 M/mcL (3.82-4.97); Red Cell Distribution Width 15.7 % (11.5-14.5)
[2019-05-10 03:05] LABS: BUN/Creatinine Ratio 30 (6-26); Blood Urea Nitrogen 24 mg/dL (8-23); Calcium 8.4 mg/dL (8.6-10.3); Carbon Dioxide 26 mEq/L (23-29); Chloride 102 mEq/L (98-107); Glucose 109 mg/dL (70-105); Osmolality,Calculated 281 (280-300); Potassium 4.1 mEq/L (3.5-5.1); Sodium 133 mEq/L (136-145); eGFR For African Americans > 60 (> 60); eGFR For Non-African Americans > 60 (> 60)
[2019-05-10] MEDS ORDERED: Isovue-370 500 ML BOTTLE IVP ONE (03:13)
--- NOTE | 2019-05-10 07:52 | Event Note ---
Date of Encounter: 05/09/19 Time of Encounter: 20:08 Alerted by patient's nurse DIANNE Shaw that patient had been admitted for hip and elbow fracture. Patient was supposed to go to surgery today, however patient's platelets were 60 5 in the AM. I discussed this patient with Dr. James this morning who felt that postponing her surgery was prudent given her current platelet situation. Transfusion order placed for 2 units of platelets and patient had just finished her second bag. CBC ordered to check platelets which returned at 93. However, follow-up platelet count on 05/10 was now 61 again. Transfusion order placed for 3 additional units of platelets. Was also alerted by nurse that patient's d-dimer was 4706. Stat CT of the chest ordered to rule out PE which showed no evidence of pulmonary embolism, bibasilar dependent atelectasis, and findings of cirrhosis as described. Nurse instructed to inform Dr. James of platelet count of 61 this a.m. as he was contemplating performing surgery again today. Nurse instructed to continue monitoring this pt. closely and alert me immediately of any adverse changes.
[2019-05-10] MEDS: Prenatal Vit/FA 1 EACH TABLET PO SCH (11:24)
[2019-05-10] MEDS: Ascorbic Acid 500 MG TABLET PO SCH (11:24)
[2019-05-10] MEDS: Vitamin E 200 UNIT (90MG) CAPSULE PO SCH (11:24)
[2019-05-10] MEDS: *HR* OxyCODONE Immed Rel 5 MG TABLET PO PRN (12:16)
--- NOTE | 2019-05-10 12:46 | Internal Med Progress Note ---
Hospitalist Progress Note - Encounter Date of Encounter: 05/10/19 Time of Encounter: 11:00 - Subjective Interval History: Patient seen at bedtime. Pain is currently well controlled. He was given 2 units of platelets yesterday and, improved platelet count to 93 but they are back in 60s. Which is also good CT overnight because of the elevated d-dimer wh ich was negative. Because of the low platelet count, she was not 3 more units of regular insulin. She is currently nothing by mouth, scheduled for surgery tonight. - Exam Vitals: Temp Pulse Resp BP Pulse Ox 98.0 F 65 16 147/70 95 05/10/19 12:19 05/10/19 12:19 05/10/19 12:19 05/10/19 12:05/10/19 12:19 Exam: General: Alert and oriented, mild physical distress, able to follow commands. Respiratory: Normal vesicular breathing, no added sounds, breathing equal in both sides. CVS: Normal heart sounds, no murmurs, regular rhthm, no edema Extremities: No peripheral edema, peripheral pulses intact. Lymph nodes: No lymphadenopathy Musculoskeltal: Right arm wrapped, tenderness on palpation, range of motion limited because of the pain at the elbow joint. Right hip joint tenderness on lateral palpation. Range of motion limited because of the pain. Neurovascularly intact both upper and lower extremities Gastrointestinal: Soft, nontender abdomen, normal abdominal sounds. No distention noted. Genitourinary: No paravertebral tenderness. Neurological: Alert and oriented. No focal deficits. Cranial nerves II-XII intact. - Assessment and Plan (1) Elbow fracture, right Current Visit: Yes Status: Acute Assessment and Plan: X-ray of the right elbow reveal a comminuted and displaced fracture of the right olecranon. Pain control. -Ortho on board. -Likely to get the surgery today after the transfusion of platelets. (2) Femoral neck fracture Current Visit: Yes Status: Acute Assessment and Plan: X-ray reveals a displaced right femoral neck fracture Pain control. Ortho on board. Likely to get surgery today after the transfusion of platelets (3) Hypothyroidism Current Visit: Yes Status: Acute Assessment and Plan: Continue home dose of levothyroxine. (4) DVT prophylaxis Current Visit: Yes Status: Acute Assessment and Plan: Subcutaneous heparin on hold due to low platelet count Compression devices ordered (5) History of congestive heart disease Current Visit: Yes Status: Acute Assessment and Plan: Questionable history of congestive heart failure. Currently not in decompensation. Takes no medication at home for congestive heart failure. Continue to monitor. (6) Thrombocytopenia Current Visit: Yes Status: Acute Assessment and Plan: Etiology unclear Platelet count improved to 93 after the infusion of the 2 units yesterday but it is better to 60 1 in the morning labs. Ordered 3 more units of platelet transfusion. Recheck the platelet count after the transfusion is done. Oncology on board. Appreciate recommendations. (7) Splenomegaly Current Visit: Yes Status: Acute Assessment and Plan: Ultrasonography consistent with splenomegaly. Etiology could be liver cirhosis Patient may need outpatient follow up with gastroenterology and oncology. (8) Liver cirrhosis Current Visit: Yes Status: Acute Assessment and Plan: Etiology unclear. Distant history of obesity status post bypass surgery. Could be no nonalcoholic fatty liver disease. Ultrasonography and CT scan evidence of liver cirrhosis. Outpatient follow-up with oncology and gastroenterology recommended. (9) Elevated d-dimer Current Visit: Yes Status: Acute Assessment and Plan: She was found to have elevated d-dimer, elevated fibrinogen, but normal PT and INR. Etiology is unclear. CTA was done overnight because of the elevated d-dimer but it was negative for any pulmonary embolism. Continue to monitor. Oncology on board appreciate recommendations. (10) Anemia Current Visit: Yes Status: Acute Assessment and Plan: Patient current hemoglobin is 9.5. Hemoglobin at presentation was 10.5. No signs of bleeding. The patient is clinically stable. Peripheral blood smear did not show any schistocytes. LDH is normal. No interventions planned. Continue to monitor. Outpatient follow-up with the oncologist recommended. - Time Spent with Patient Total time spent is greater than 50% in coordination of care (as documented) at patient's floor/unit and/or counseling patient: Internal Medicine: Result - Labs CBC & Chem 7: 05/10/19 02:30 05/10/19 02:30 Labs: Short CBC 05/09/19 05/10/19 Range/Units 21:59 02:30 WBC 9.1 7.0 (4.3-11.1) K/mcL Hgb 9.5 L 9.6 L (11.5-15.4) g/dL Hct 29.4 L 30.1 L (35.3-44.9) % Plt Count 93 L 61 L (140-400) K/mcL Neutrophils # 6.8 (1.6-8.9) K/mcL BMP 05/10/19 02:30 Sodium 133 L Potassium 4.1 Chloride 102 Carbon Dioxide 26 BUN 24 H Creatinine 0.81 Glucose 109 H Calcium 8.4 L - ABG Interpretation ABG results: PT/INR, D-dimer PT 11.8 Seconds (9.4-12.1) 05/09/19 09:12 D-Dimer 4706 ng/mLFEU (0-500) H 05/09/19 09:12 - Impressions Impressions Abdomen Ultrasound 05/09/19 13:30 IMPRESSION: 1. Technically limited secondary to patient's immobility. 2. Splenomegaly. 3. Heterogeneous liver which can be seen in hepatocellular disease. 4. Cholecystectomy. The common bile duct is mildly prominent measuring 10 mm. D/ / 05/09/2019 14:23:13 Marlena García MD / [facility] Interpreting Provider: Marlena García MD Chest X-Ray 05/09/19 17:01 IMPRESSION: Possible mild airspace disease at the left lung base, but given the low lung volumes that could be secondary to atelectasis rather than true pneumonia or aspiration. Consider a repeat PA and chest radiograph if clinically able. D/ / Humphrey Luz MD / Humphrey Luz MD Interpreting Provider: Humphrey Luz MD Chest CTA 05/10/19 03:13 IMPRESSION: 1. No evidence of pulmonary embolism. 2. Bibasilar dependent atelectasis. 3. Findings of cirrhosis as described. D/ / Chioma Kan MD / Chioma Kan MD Interpreting Provider: Chioma Kan MD - VTE Documentation of Mechanical Device: Intermittent pneumatic compression device Consult Discharge Plan - Plan Referrals: Marcus Mendoza DO [Primary Care Provider] - _ (1) Elbow fracture, right Qualifiers: Encounter type: initial encounter Fracture type: closed Qualified Code(s): S42.401A - Unspecified fracture of lower end of right humerus, initial encounter for closed fracture (2) Femoral neck fracture Qualifiers: Encounter type: initial encounter Fracture type: closed Laterality: right Qualified Code(s): S72.001A - Fracture of unspecified part of neck of right femur, initial encounter for closed fracture (3) Hypothyroidism Qualifiers: Hypothyroidism type: unspecified Qualified Code(s): E03.9 - Hypothyroidism, unspecified
--- NOTE | 2019-05-10 15:55 | Oncology Inp Progress Note ---
<Boom Velasco - Last Filed: 05/10/19 16:06> Date of Encounter: 05/10/19 Oncology: Obj Data - Labs CBC & Chem 7: 05/10/19 02:30 05/10/19 02:30 Consult Discharge Plan - Plan Referrals: Marcus Mendoza DO [Primary Care Provider] - Inpatient Charges Provider: Dr. Pedro Velasco Follow up - Inpatient: [id number] - Attending Attestation I examined this patient and my medical decision-making was reviewed with the Advanced Practice Nurse. I agree with the documented findings, disposition and treatment plan as described except to the extent set forth below. -Thrombocytopenia likely 2/2 underlying cirrhosis and splenomegaly -Surgery aware of blood counts, and transfusing platelets as appropriate prior to the OR -Please follow transfusion guidelines in our note and per orthopedic recommendations following the OR -Will check iron studies and MM w/u <Prashant Truong Jr - Last Filed: 05/10/19 18:21> Date of Encounter: 05/10/19 Time of Encounter: 15:53 (1) Thrombocytopenia Current Visit: Yes Status: Acute Assessment and plan: Patient is scheduled for orthopedic repair later today as an add on to surgical schedule. 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 So far, hepatitis, B12 and folate unremarkable. Smear is pending. LDH unremarkable, as is retic. We will add myeloma work up and iron panel today since she has not had a distance learning unit leader work up previously as an outpatient Further recommendations: 1. Transfuse 1 pack of platelets if PLT count <10,000, or, if < 50,000 for elective surgical procedure, fever, or active bleeding. For platelet requirements following surgery, please follow orthopedic surgeon recommendations 2. Transfuse 1 unit PRBCs if hgb<7.0 3. We can follow along as needed. Dr Velasco assessed patient with me today (2) Splenomegaly Current Visit: Yes Status: Acute (3) Liver cirrhosis Current Visit: Yes Status: Acute Qualifiers: Hepatic cirrhosis type: other cirrhosis Qualified Code(s): K74.69 - Other cirrhosis of liver (4) Anemia Current Visit: Yes Status: Acute Qualifiers: Anemia type: iron deficiency Iron deficiency anemia type: other iron d eficiency Qualified Code(s): D50.8 - Other iron deficiency anemias Oncology: Subj Interval history: Patient resting in bed with 2 family members at bedside. Family states she is an add on for surgical repair later today for orthopedic fractures sustained in a fall. - Constitutional General appearance: cooperative, no acute distress - Head Head exam: Present: normal inspection, normocephalic - Eye Eye exam: Present: PERRL - ENT ENT exam: Present: mucous membranes moist - Neck Neck exam: Present: full ROM - Respiratory Respiratory exam: Present: CTAB - Cardiovascular Cardiovascular exam: Present: RRR - GI/Abdominal GI/Abdominal exam: Present: soft - Extremities Exam Extremities exam: Present: joint swelling (RUE, RLE) - Neurological Exam Neurological exam: Present: alert, oriented X3, no focal deficits - Psychiatric Psychiatric exam: Present: normal mood - Skin Skin exam: Present: dry, intact, warm Oncology: Obj Data - Labs CBC & Chem 7: 05/10/19 02:30 05/10/19 02:30
[2019-05-10 19:16] LABS: Ferritin 118 ng/mL (10-120); Iron < 10 mcg/dL (50-170); Transferrin 174 mg/dL (203-362)
--- NOTE | 2019-05-10 21:57 | Orthopedics Progress Note ---
Date of Encounter: 05/10/19 Time of Encounter: 21:54 Subjective Principal diagnosis: Displaced right femoral neck fracture and displaced right olecranon fractur Interval history: 05/08/2019. Patient is having anticipated pain. No significant interval change. Vital signs are stable. Patient is afebrile. Examination remains stable and unchanged. Laboratory data includes a stable hemoglobin, however, patient's platelet count remains low currently at 69,000. Impression: 1. Displaced right femoral neck fracture 2. Displaced right olecranon fracture 3. Thrombocytopenia Recommendation: Anticipate surgery tomorrow. This would include ORIF of the olecranon as well as a hemiarthroplasty of the right hip. We will need to reevaluate the platelet count in the morning. May need to cancel her delay surgery depending upon her platelet count with the possibility of requiring platelet transfusion. 05/09/2019. Surgery was canceled due to thrombocytopenia. Patient has been seen and evaluated by he involved. Patient did receive 2 units of platelets with a increase in platelet count from 66-93. Hemoglobin has unfortunately dropped from 10.5-9.5 in this interval. We will reevaluate platelet count in a.m. Tentatively for surgery tomorrow. Surgery will include both ORIF of the right olecranon as well as a hemiarthroplasty of the right hip. 05/10/2019. Patient is status quo. Surgery was tentatively scheduled for today, unfortunately, operating room is currently working with an unknown start time. Additionally, the patient has thrombocytopenia. Her platelet count has risen from approximately 65,000 to nearly 110,000 with 3 units of platelets rosa sfused. We have rescheduled her surgery for tomorrow. We will have 4 units of platelets immediately available with at least 2 more available quite rapidly. Discussed all these concerns with the patient and family who understand and agree with not proceeding with surgery tonight at such a late hour and anticipating surgical intervention tomorrow afternoon. Objective Vital signs: Vital Signs Temp Pulse Resp BP Pulse Ox 05/10/19 19:56 99.7 F H 81 18 112/53 93 05/10/19 15:35 98.5 F 80 15 143/64 05/10/19 12:19 98.0 F 65 16 147/70 95 05/10/19 12:04 98.6 F 64 16 145/77 93 05/10/19 10:14 98.7 F 65 17 145/68 92 05/10/19 07:03 99.0 F 72 17 126/69 95 05/10/19 04:43 99.1 F 72 16 130/75 94 05/10/19 00:19 98.3 F 73 16 132/75 98 Intake and Output 05/10/19 05/10/19 05/10/19 07:59 15:59 23:59 Intake Total 0 / 900 900 / 900 0 / 900 Output Total 625 / 1325 350 / 1325 350 / 1325 Balance -625 / -425 550 / -425 -350 / -425 Intake: Oral 0 / 0 0 / 0 Blood Product 900 / 900 Platelet Pheresis Lp Irr 1st 900 / 900 Unit [id number] Output: Catheter 625 / 1325 350 / 1325 350 / 1325 Other: Weight 66.58 kg Patient Weight 05/10/19 23:59 Weight 66.58 kg - Labs CBC & BMP: 05/10/19 18:08 05/10/19 02:30 Labs: Abnormal lab results RBC 3.25 M/mcL (3.82-4.97) L 05/10/19 02:30 Hgb 9.6 g/dL (11.5-15.4) L 05/10/19 02:30 Hct 30.1 % (35.3-44.9) L 05/10/19 02:30 RDW 15.7 % (11.5-14.5) H 05/10/19 02:30 Plt Count 100 K/mcL (140-400) L D 05/10/19 18:08 Reactive Lymphocytes Present (Not Present) A 05/07/19 21:20 Toxic Granulation Present (Not Present) A 05/07/19 21:20 Platelet Estimate Decreased (Normal) L 05/07/19 21:20 Fibrinogen 469 mg/dL (169-393) H 05/09/19 09:12 D-Dimer 4706 ng/mLFEU (0-500) H 05/09/19 09:12 Sodium 133 mEq/L (136-145) L 05/10/19 02:30 Chloride 108 mEq/L (98-107) H 05/08/19 06:10 Carbon Dioxide 21 mEq/L (23-29) L 05/08/19 06:10 BUN 24 mg/dL (8-23) H 05/10/19 02:30 Est GFR (Non-Af Amer) 55 (> 60) L 05/07/19 21:20 BUN/Creatinine Ratio 30 (6-26) H 05/10/19 02:30 Glucose 109 mg/dL (70-105) H 05/10/19 02:30 Calcium 8.4 mg/dL (8.6-10.3) L 05/10/19 02:30 Iron < 10 mcg/dL (50-170) L 05/10/19 18:08 Transferrin 174 mg/dL (203-362) L 05/10/19 18:08 Total Bilirubin 1.3 mg/dL (0.3-1.0) H 05/07/19 21:20 AST 46 Units/L (13-39) H 05/07/19 21:20 Alkaline Phosphatase 319 Units/L (34-104) H 05/07/19 21:20 B-Natriuretic Peptide 259 pg/mL (Less than 100) H 05/07/19 21:20 Albumin 3.0 g/dL (3.5-5.7) L 05/07/19 21:20 Albumin/Globulin Ratio 0.9 (1.1-2.2) L 05/07/19 21:20 Folate > 22.3 ng/mL (3.0-16.0) H 05/09/19 09:12 Direct Antiglob Test 1+ (Negative) A 05/09/19 09:12 - VTE Documentation of Mechanical Device: Intermittent pneumatic compression device Consult Discharge Plan - Plan Referrals: Marcus Mendoza DO [Primary Care Provider] -
[2019-05-10] MEDS: *HR* HYDROcodone/Acet 5/325 mg TABLET PO PRN (23:04)
[2019-05-11 05:48] LABS: Basophils % 0.6 %; Eosinophils # 0.2 K/mcL (0.0-0.6); Eosinophils % 3.2 %; Hematocrit 30.1 % (35.3-44.9); Hemoglobin 9.7 g/dL (11.5-15.4); Immature Granulocytes % 0.4 % (0-4); Lymphocytes % 14.4 %; Mean Corpuscular HGB Conc 32.2 g/dL (31.6-35.5); Mean Corpuscular Hemoglobin 30.3 pg (28.0-33.3); Mean Corpuscular Volume 94.1 fL (83.0-100.0); Mean Platelet Volume 9.9 fL (9.4-12.4); Monocytes # 0.9 K/mcL (0.0-1.3); Monocytes % 12.5 %; Neutrophils # 4.7 K/mcL (1.6-8.9); Platelet Count 106 K/mcL (140-400); Red Cell Distribution Width 15.6 % (11.5-14.5); Segmented Neutrophils % 68.9 %; White Blood Count 6.8 K/mcL (4.3-11.1)
[2019-05-11 06:08] LABS: BUN/Creatinine Ratio 36 (6-26); Blood Urea Nitrogen 28 mg/dL (8-23); Calcium 8.6 mg/dL (8.6-10.3); Carbon Dioxide 28 mEq/L (23-29); Chloride 103 mEq/L (98-107); Glucose 107 mg/dL (70-105); Osmolality,Calculated 292 (280-300); Potassium 4.4 mEq/L (3.5-5.1); Sodium 138 mEq/L (136-145); eGFR For African Americans > 60 (> 60); eGFR For Non-African Americans > 60 (> 60)
[2019-05-11] MEDS ORDERED: 0.9 % Sodium Chloride 500 ML IVC SCH (06:15)
[2019-05-11] MEDS: *HR* HYDROcodone/Acet 5/325 mg TABLET PO PRN (07:04)
--- NOTE | 2019-05-11 08:01 | Anesthesia Evaluation PreOp ---
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 Any Significant HX, TIA (2 weeks ago) Other Medical History: Thyroid Anesthesia History: No Prior Anesthetic Complications, Past Anesthesia (gastric bypass 1989, l femur fx with pinning, lumbar fusion, cataracts, r wrist) : No Alcohol Use: occasionally Drug use: none Medications and Allergies Ascorbic Acid [Vitamin C] 1,000 mg PO DAILY 12/14/16 [History] Biotin 1 mg PO DAILY 12/14/16 [History] Calcium Carbonate [Calcium] 600 mg PO BID 12/14/16 [History] Vit/Iron Fumarate/FA [ Tablet] 1 each PO DAILY 12/14/16 [History] Vitamin E Acid Succinate [Vitamin E] 400 units PO DAILY 12/14/16 [History] Cyanocobalamin (B-12) [Vitamin B12] 1,000 mcg IM QMONTH 05/08/19 [History] Levothyroxine [Synthroid] 125 mcg PO 0630 05/08/19 [History] Allergy/AdvReac Type Severity Reaction Status Date / Time No Known Allergies Allergy Verified 05/08/19 09:40 - Meds/Allergy Pre-op Review Medications Reviewed: Yes Allergies Reviewed: Yes Beta Blockers on Current Med List: No Anesthesia Results - Labs 05/11/19 05:20 05/11/19 05:20 Laboratory Tests 05/11/19 05/11/19 05:20 05:20 Hgb 9.7 L Hct 30.1 L Plt Count 106 L BUN 28 H Creatinine 0.77 - Imaging EKG: report reviewed, image reviewed Anesthesia Exam Vital Signs/O2 Sat, Most Current Temp Pulse Resp BP Pulse Ox 97.9 F 76 18 106/54 94 05/11/19 03:38 05/11/19 03:38 05/11/19 03:38 05/11/19 03:38 05/11/19 03:38 - HEENT Pupil (Motor): Pupils equal, EOMI Denture Type: Upper: Complete Oral Opening: Greater than 3 - WING MAILER MACHINE OPERATOR LOC: Oriented WING MAILER MACHINE OPERATOR Motor: Normal RUE, Normal LUE, Normal RLE, Normal LLE, Normal Face WING MAILER MACHINE OPERATOR Sensory: Normal: RUE, LUE, RLE, LLE, Face - Cardiac Rhythm: Regular Murmur: None JVD: No - Pulmonary Breath Sounds: bilateral Clear Respiratory Effort: Symmetrical Anesthesia Assess/Plan ASA Score: 3 Level of consciousness: Cooperative, Oriented Anesthetic Plan: General Monitoring Plan: Standard Monitors Recovery Plan: PACU
[2019-05-11] MEDS: Ascorbic Acid 500 MG TABLET PO SCH (09:47)
[2019-05-11] MEDS: Vitamin E 200 UNIT (90MG) CAPSULE PO SCH (09:47)
[2019-05-11] MEDS: Prenatal Vit/FA 1 EACH TABLET PO SCH (09:47)
[2019-05-11] MEDS ORDERED: 0.9 % Sodium Chloride 1,000 ML IVC SCH (11:15)
--- NOTE | 2019-05-11 12:15 | Internal Med Progress Note ---
Hospitalist Progress Note - Encounter Date of Encounter: 05/11/19 Time of Encounter: 10:45 - Subjective Interval History: Seen at bedside. Denies any acute complaints today. Mentioned that her pain is well controlled. He should count have improved. The plan was to take her to operation theater yesterday but because of administered issues, could not be done. Likely surgery today. Denies any fever, chills, rigors. Denies chest pain or shortness of breath. No other overnight events. - Exam Vitals: Temp Pulse Resp BP Pulse Ox 98.2 F 63 16 137/84 98 05/11/19 12:01 05/11/19 12:01 05/11/19 12:01 05/11/19 12:05/11/19 12:01 Exam: General: Alert and oriented, mild physical distress, able to follow commands. Respiratory: Normal vesicular breathing, no added sounds, breathing equal in both sides. CVS: Normal heart sounds, no murmurs, regular rhthm, no edema Extremities: No peripheral edema, peripheral pulses intact. Lymph nodes: No lymphadenopathy Musculoskeltal: Right arm wrapped, tenderness on palpation, range of motion limited because of the pain at the elbow joint. Right hip joint tenderness on lateral palpation. Range of motion limited because of the pain. Neurovascularly intact both upper and lower extremities Gastrointestinal: Soft, nontender abdomen, normal abdominal sounds. No distention noted. Genitourinary: No paravertebral tenderness. Neurological: Alert and oriented. No focal deficits. Cranial nerves II-XII intact. - Assessment and Plan (1) Elbow fracture, right Current Visit: Yes Status: Acute Assessment and Plan: X-ray of the right elbow reveal a comminuted and displaced fracture of the r ight olecranon. Pain control. -Ortho on board. -Likely to get the surgery today. Platelet count today is 106. (2) Femoral neck fracture Current Visit: Yes Status: Acute Assessment and Plan: X-ray reveals a displaced right femoral neck fracture Pain control. Ortho on board. Likely to get the surgery today. Platelet count 106. (3) Hypothyroidism Current Visit: Yes Status: Acute Assessment and Plan: Continue home dose of levothyroxine. (4) DVT prophylaxis Current Visit: Yes Status: Acute Assessment and Plan: Subcutaneous heparin on hold due to low platelet count Compression devices ordered (5) History of congestive heart disease Current Visit: Yes Status: Acute Assessment and Plan: Questionable history of congestive heart failure. Currently not in decompensation. Takes no medication at home for congestive heart failure. Continue to monitor. (6) Thrombocytopenia Current Visit: Yes Status: Acute Assessment and Plan: Etiology unclear Platelet count improved to 93 after the infusion of the 2 units , then it decreased to 6 days, was given 3 more units yesterday, current platelet count is 106 in the morning labs. We will continue to monitor. Patient will most likely get the surgery today. Oncology on board. Appreciate recommendations. (7) Splenomegaly Current Visit: Yes Status: Acute Assessment and Plan: Ultrasonography consistent with splenomegaly. Etiology could be liver cirhosis Patient may need outpatient follow up with gastroenterology and oncology. (8) Liver cirrhosis Current Visit: Yes Status: Acute Assessment and Plan: Etiology unclear. Distant history of obesity status post bypass surgery. Could be no nonalcoholic fatty liver disease. Ultrasonography and CT scan evidence of liver cirrhosis. Outpatient follow-up with oncology and gastroenterology recommended. (9) Elevated d-dimer Current Visit: Yes Status: Acute Assessment and Plan: She was found to have elevated d-dimer, elevated fibrinogen, but normal PT and INR. Etiology is unclear. CTA was done because of the elevated d-dimer but it was negative for any pulmonary embolism. Continue to monitor. Oncology on board appreciate recommendations. (10) Anemia Current Visit: Yes Status: Acute Assessment and Plan: Patient current hemoglobin is 9.5. Hemoglobin at presentation was 10.5. No signs of bleeding. The patient is clinically stable. Peripheral blood smear did not show any schistocytes. LDH is normal. No interventions planned. Continue to monitor. Outpatient follow-up with the financial sales consultant and oncologist recommended. - Time Spent with Patient Total time spent is greater than 50% in coordination of care (as documented) at patient's floor/unit and/or counseling patient: Internal Medicine: Result - Labs CBC & Chem 7: 05/11/19 05:20 05/11/19 05:20 Labs: Short CBC 05/10/19 05/11/19 Range/Units 18:08 05:20 WBC 6.8 (4.3-11.1) K/mcL Hgb 9.7 L (11.5-15.4) g/dL Hct 30.1 L (35.3-44.9) % Plt Count 100 L D 106 L (140-400) K/mcL Neutrophils # 4.7 (1.6-8.9) K/mcL BMP 05/11/19 05:20 Sodium 138 Potassium 4.4 Chloride 103 Carbon Dioxide 28 BUN 28 H Creatinine 0.77 Glucose 107 H Calcium 8.6 - ABG Interpretation ABG results: PT/INR, D-dimer PT 11.8 Seconds (9.4-12.1) 05/09/19 09:12 D-Dimer 4706 ng/mLFEU (0-500) H 05/09/19 09:12 - VTE Documentation of Mechanical Device: Intermittent pneumatic compression device Consult Discharge Plan - Plan Referrals: Marcus Mendoza DO [Primary Care Provider] - (1) Elbow fracture, right Qualifiers: Encounter type: initial encounter Fracture type: closed Qualified Code(s): S42.401A - Unspecified fracture of lower end of right humerus, initial encounter for closed fracture (2) Femoral neck fracture Qualifiers: Encounter type: initial encounter Fracture type: closed Laterality: right Qualified Code(s): S72.001A - Fracture of unspecified part of neck of right femur, initial encounter for closed fracture (3) Hypothyroidism Qualifiers: Hypothyroidism type: unspecified Qualified Code(s): E03.9 - Hypothyroidism, unspecified (8) Liver cirrhosis Qualifiers: Hepatic cirrhosis type: other cirrhosis Qualified Code(s): K74.69 - Other cirrhosis of liver (10) Anemia Qualifiers: Anemia type: iron deficiency Iron deficiency anemia type: other iron deficiency Qualified Code(s): D50.8 - Other iron deficiency anemias
[2019-05-11] MEDS ORDERED: Lidocaine HCL 4 ML Topical Solution (Laryng-O-Jet Kit Sterile Pak) TP ONE (13:41)
[2019-05-11] MEDS ORDERED: Ondansetron 4 MG/2 ML VIAL ONE (13:52)
[2019-05-11] MEDS ORDERED: *HR* FentaNYL (PF) 100 MCG/2 ML VIAL ONE (13:52)
[2019-05-11] MEDS ORDERED: *HR* Propofol 200 MG/20 ML VIAL IVP ONE (13:52)
[2019-05-11] MEDS ORDERED: *HR* Rocuronium Bromide 50 MG/5 ML VIAL ONE (13:52)
[2019-05-11] MEDS ORDERED: Dexamethasone 4 MG/ML VIAL ONE (13:52)
[2019-05-11] MEDS ORDERED: Lidocaine -MPF 2% 2 ML VIAL ONE (13:52)
[2019-05-11] MEDS ORDERED: *HR* Promethazine 25 MG/ML VIAL IVP PRN (14:21)
[2019-05-11] MEDS ORDERED: *HR* Meperidine 25 MG/ML SYRINGE IVP PRN (14:21)
[2019-05-11] MEDS ORDERED: Ringers Solution, Lactated 1,000 ML IVC SCH (14:30)
[2019-05-11] MEDS ORDERED: EPHEDrine 50 MG/ML VIAL ONE (15:15)
[2019-05-11] MEDS ORDERED: ceFAZolin 2,000 MG in Water for inj. (sterile) 20 ML IVP ONE (16:25)
[2019-05-11] MEDS: *HR* HYDROmorphone (PF) 1 MG/ML SYRINGE IVP PRN ×3 (20:13→20:41)
--- NOTE | 2019-05-11 20:52 | Operative Note ---
Date of procedure: 05/11/19 Pre-op diagnosis: 1. Displaced right femoral neck fracture 2. Displaced, comminuted fractur Post-op diagnosis: same (3. Avulsion abductor tendons right hip (gluteus medius and minimus)) Procedure: 1. Hemiarthroplasty right hip 2. Abductor tendon repair right hip (gluteus medius and minimus) 3. Open reduction internal fixation of right olecranon 4. Fluoroscopic guidance for ORIF right olecranon Implants: Biomet Echo size 10 lateralized femoral stem with a standard neck adapter and a 46 mm unipolar endoprosthesis Maxbass right 4 hole Variax olecranon plate and screws Complications: None Anesthesia: DENYSA Surgeon: Abel James Was there an showroom sales assistant present: No Estimated blood loss (cc): 200 Tourniquet Time (Minutes): 65 Specimen: None Condition: stable Disposition: PACU Procedure in Detail: Gross findings: 1. Preoperative x-rays revealed a displaced fracture of the right femoral neck in this 78-year-old woman. There was generalized osteopenia. Intraoperative findings included a Lopez lesion of a significant portion of the abductors from the anterior trochanter, these were chronic in nature and involves the majority of the gluteus medias and the gluteus minimus tendons. There was smooth bony surface with loss of normal tendon attachment. Tissue quality was fairly poor. Fracture was as noted. A cemented unipolar hemiarthroplasty was performed without complicating features. After placement of the hip and repair of the abductors a stable well-functioning hip was noted. 2. Preoperative x-rays of the right elbow revealed a complex and comminuted fracture of the olecranon. This also was associated with generalized osteopenic bone. Intraoperative findings revealed a marked amount of subcutaneous and soft tissue hematoma intersperse amongst the soft tissues. An extremely comminuted olecranon was noted. Bone distal to the major fracture site was preserved but tremendous comminution was noted proximally. This included both the medial and lateral sides as well as significant comminution of the tip of the olecranon proper. The fracture was stabilized and reduced with a locking type olecranon plate and screw construct. Fluoroscopy was used to guide and verified the reduction and that placement of all implants was excellent. Procedure: Patient was taken the operating room and while on the hospital bed was administered a general anesthesia with smooth induction with atraumatic intubation. Patient was now transferred to the operating table. She was placed in a lateral recumbent position with the right side up and stabilized with a lateral hip stabilizing system. All pressure points were well-padded. Right hip was now prepped and draped in normal standard fashion for surgery. Right lateral hip incision was created. Dissection was carried through subtendinous tissues to the level of fascia ian which was cleared split length the incision. Marked amount of synovial and serous type fluid was encountered and evacuated. Charnley retractors placed maintaining exposure. Marked a frozen a significant portion of the gluteus tendons was noted anteriorly. The remaining tendon was dissected off the trochanter and tagged with #2 FiberWire suture for traction of later repair. Capsule was likewise taken down and superior capsulotomy was made up the level of the acetabulum. Femoral neck osteotomy was made. Head was removed from the acetabulum and sized to probably a 45 or 46. The acetabulum was then irrigated of any bony debris. We was then formally sized and a 46 mm was selected. Attention was turned to the femur. Box osteotome was utilized to open up the medial trochanter. T-handled reamer was passed on the femoral canal. Canal was sequentially rasped up to and including the size 10 rasp. This at just below the level of the osteotomy. Calcar reaming was now performed. Trialing was now performed and a neutral neck length with a 46 mm head appeared to be most appropriate. At this time all trial components were removed. A cement restrictor was placed distally. Femoral canal was then cleaned with a femoral brush and irrigated removing all clot and debris. Canal was now dried with a combination of suction and femoral sponge. At the back table cement was mixing the appropriate time the cement was instilled into the femur which filled in a retrograde manner and then pressurized proximally. The selected femoral stem was then placed into the cement and impacted until it sat at the level of the osteotomy and a neutral position. Excess cement was trimmed away. Cement was now allowed to firmly harden. The Barraza taper on the femoral stem was now cleaned and dried and the adapter and selected head was then placed and impacted with 3 sharp blows of the mallet. Prior to the reduction the smooth area where the abductors had been avulsed was debrided to healthy cortico-cancellus bone. 2 #2 FiberWire suture were placed for repair. This is now followed by wound closure. Capsulotomy was closed with #2 FiberWire. The abductors of then repaired back to the trochanter with many of the previously placed #2 FiberWire as well as multiple additional #2 FiberWire suture passed through bone. The repair was then further reinforced with running #2 strata fix. Fascia ian was closed with multiple 3 rate 60 #2 FiberWire followed by running #2 strata fix. Deep subtendinous tissue was closed with running #0 Vicryl. Medius obtained his tissues closed with multiple inverted interrupted 2-0 undyed Vicryl and then skin was closed with a running septic her stitches of 20 strata fix followed by skin glue and operative foam. Patient was now placed into an abduction pillow. Patient was then placed in the supine position on the operating table and attention was turned to the right olecranon. Patient right upper extremity was prepped and draped in normal standard fashion for the surgery with a tourniquet placed high about the arm. Arm was exsanguinated and the tourniquet was inflated. Posterior incision was made over the olecranon. Dissection was carried through the marked bloodstained soft tissues on the level of the olecranon and the ulna. Fracture site was immediately apparent. Limited subperiosteal exposure was performed, enough to allow for exposure the fracture site and for placement of the implants. Tremendous comminution was noted. The fracture site was debrided of any clot and other debris. The fracture was now reduced and held temporarily with bone-holding clamps. A 4 hole plate was then positioned on the posteromedial aspect of the olecranon. The plate was secured distally with several lag screws. This was followed by placing multiple locking screws proximally and a single locking screw distally. This allowed the major fracture fragments be well reduced and aligned. This was verified with multiplane are fluoroscopic views. The tremendous comminution did not allow for any interfragmentary screws as the fragments were extremely small. With fluoroscopic verification the proximalmost locking screw was placed running down the shaft of the ulna. Wound was now irrigated and closed. Periosteum was closed over top of the ulna and the plate with multiple [id number] stitch of 0 undyed Vicryl. Duc obtained his tissue closed with multiple inverted interrupted 2-0 undyed Vicryl followed by skin approximation with stainless st eel clips. Sterile dressings consisting of bacitracin Adaptic 4 x 4 sterile cast padding were applied and secured. Tourniquet was now deflated. Patient was now placed into a posterior fiberglass splint and secured with Eliecer wraps. Patient was placed into a sling were on the operating table. Patient was now transferred from the operating table to hospital bed at which point she was awakened from anesthesia, extubated in the operating room and then transferred to the postanesthesia care unit in stable and satisfactory condition. All sponge needle and isthmic counts are correct. No specimens are sent for pathology.
--- NOTE | 2019-05-11 21:15 | Anesthesia Evaluation Post Op ---
Date of Encounter: 05/11/19 Time of Encounter: 21:15 - Vital Signs Vital Signs: Vital Signs/O2 Sat, Most Current Temp Pulse Resp BP Pulse Ox 98.7 F 76 20 121/50 93 05/11/19 21:05 05/11/19 21:05 05/11/19 21:05 05/11/19 21:05 05/11/19 21:05 - Lungs Lungs: Clear Ascult./Percussion - Airway Airway: Non-obstructed - Cardiovascular Regular Rate - Mental Status Mental Status: Asleep with brisk response to light stimulation - Pain Pain Scale used: Unable to assess (states a little pain) - Nausea Vomiting Nausea Vomiting: Not Present - Hydration Hydration: NPO, Lopez catheter - Discharge PostOp Status: Transfer Patient to floor
[2019-05-11] MEDS ORDERED: Acetaminophen 325 MG TABLET PO PRN (21:29)
[2019-05-11] MEDS ORDERED: Naloxone 0.4 MG/ML INJ IVP PRN (21:29)
[2019-05-11] MEDS ORDERED: Ondansetron 4 MG/2 ML VIAL IVP PRN (21:29)
[2019-05-11] MEDS ORDERED: cloNIDine HCl 0.1 MG TABLET PO PRN (21:29)
[2019-05-11] MEDS: 0.9 % Sodium Chloride 1,000 ML IVC SCH (21:41)
[2019-05-12 03:31] LABS: Basophils % 0.3 %; Eosinophils % 0.1 %; Hemoglobin 9.1 g/dL (11.5-15.4); Immature Granulocytes % 0.5 % (0-4); Immature Platelets 2.3 % (1.1-6.1); Lymphocytes # 0.5 K/mcL (0.6-4.6); Lymphocytes % 5.2 %; Mean Corpuscular HGB Conc 32.5 g/dL (31.6-35.5); Mean Corpuscular Hemoglobin 30.3 pg (28.0-33.3); Mean Corpuscular Volume 93.3 fL (83.0-100.0); Mean Platelet Volume 10.5 fL (9.4-12.4); Monocytes # 0.8 K/mcL (0.0-1.3); Monocytes % 9.7 %; Neutrophils # 7.3 K/mcL (1.6-8.9); Platelet Count 113 K/mcL (140-400); Red Cell Distribution Width 15.2 % (11.5-14.5); Segmented Neutrophils % 84.2 %; White Blood Count 8.7 K/mcL (4.3-11.1)
[2019-05-12 03:50] LABS: Alanine Aminotransferase 15 Units/L (7-52); Albumin 2.5 g/dL (3.5-5.7); Albumin/Globulin Ratio 0.8 (1.1-2.2); Alkaline Phosphatase 208 Units/L (34-104); Aspartate Amino Transferase 22 Units/L (13-39); BUN/Creatinine Ratio 39 (6-26); Bilirubin,Total 0.9 mg/dL (0.3-1.0); Blood Urea Nitrogen 31 mg/dL (8-23); Calcium 8.4 mg/dL (8.6-10.3); Carbon Dioxide 26 mEq/L (23-29); Chloride 104 mEq/L (98-107); Globulin 3.1 g/dL (2.4-3.5); Glucose 141 mg/dL (70-105); Osmolality,Calculated 295 (280-300); Potassium 4.9 mEq/L (3.5-5.1); Sodium 138 mEq/L (136-145); Total Protein 5.6 g/dL (6.4-8.9); eGFR For African Americans > 60 (> 60); eGFR For Non-African Americans > 60 (> 60)
[2019-05-12] MEDS: *HR* Enoxaparin 40 MG/0.4 ML SYRINGE SQ SCH (06:09)
[2019-05-12] MEDS: Prenatal Vit/FA 1 EACH TABLET PO SCH (09:09)
[2019-05-12] MEDS: Ascorbic Acid 500 MG TABLET PO SCH (09:10)
[2019-05-12] MEDS: Vitamin E 200 UNIT (90MG) CAPSULE PO SCH (09:10)
[2019-05-12] MEDS: *HR* OxyCODONE Immed Rel 5 MG TABLET PO PRN ×2 (09:12→16:09)
[2019-05-12] MEDS: *HR* HYDROcodone/Acet 5/325 mg TABLET PO PRN (13:00)
[2019-05-12] MEDS ORDERED: Loratadine 10 MG TABLET PO SCH (13:44)
--- NOTE | 2019-05-12 13:46 | Internal Med Progress Note ---
Hospitalist Progress Note - Encounter Date of Encounter: 05/12/19 Time of Encounter: 13:43 - Subjective Interval History: Patient doing well this morning. Postop pain is minimal and controlled with current pain medications. - Exam Vitals: Temp Pulse Resp BP Pulse Ox 97.5 F L 88 16 127/65 92 05/12/19 07:07 05/12/19 13:00 05/12/19 13:00 05/12/19 13:00 05/12/19 07:07 Exam: General: Ill-appearing and in no acute distress HEENT: No erythema of posterior pharynx. No exudates. Lymphatics: No mandibular or cervical lymphadenopathy Cardiovascular: RRR. No murmurs. No chest wall tenderness. Lungs: Clear to auscelltation bilaterally. Regular chest rise. Abdomen: Non-tender. No rebound or gaurding. Nl bowel sounds. Extremities: R knee dressing c/d/i Skin: No rahses, abrasions, or contusions. Nl cap refill. MSK: Pain and limited ROM of R hip. R shoulder in sling. Psych: Nl attention. A&Ox3 Neuro: web application tester II-XII intact. 5/5 strength. Sensation to light touch and pinprick intact. - Assessment and Plan (1) Fall from ground level Current Visit: Yes Status: Acute Assessment and Plan: Patient with no remarkable past medical history presented after a ground-level fall with multiple fractures of the right hip and right upper extremity status post orthopedic surgery for these fractures. - Awaiting SNF placement - likely Monday (2) Femoral neck fracture Current Visit: Yes Status: Acute Assessment and Plan: Found to have a femoral neck fracture after ground level fall and is status post hemiarthroplasty and abductor tendon repair of right hip. - Dressing changes per ortho - LMWH - PT/OT - SNF placement (3) Elbow fracture, right Current Visit: Yes Status: Acute Assessment and Plan: Found to have right olecranon fracture status post open reduction internal fixation. - Dressing changes per ortho - PT/OT - SNF placement (4) Liver cirrhosis Current Visit: Yes Status: Acute Assessment and Plan: Evidence of heterogeneous liver on ultrasound concerning for cirrhosis along with splenomegaly and thrombocytopenia. -Viral hepatitis serologies negative -No history of alcohol abuse -Ferritin within normal limits so hemachromatosis is unlikely -Not of habitus for RAMIRES cirrhosis PLAN: - Autoimmune hepatitis labs - MM w/u per onc (5) Thrombocytopenia Current Visit: Yes Status: Acute (6) Splenomegaly Current Visit: Yes Status: Acute Assessment and Plan: Per above (7) Anemia Current Visit: Yes Status: Acute Assessment and Plan: Per above DVT Prophylaxis: LMWH Internal Medicine: Result - Labs CBC & Chem 7: 05/12/19 03:15 05/12/19 03:15 Labs: Short CBC 05/12/19 Range/Units 03:15 WBC 8.7 (4.3-11.1) K/mcL Hgb 9.1 L (11.5-15.4) g/dL Hct 28.0 L (35.3-44.9) % Plt Count 113 L (140-400) K/mcL Neutrophils # 7.3 (1.6-8.9) K/mcL BMP 05/12/19 03:15 Sodium 138 Potassium 4.9 Chloride 104 Carbon Dioxide 26 BUN 31 H Creatinine 0.80 Glucose 141 H Calcium 8.4 L Liver Function 05/12/19 Range/Units 03:15 Total Bilirubin 0.9 (0.3-1.0) mg/dL AST 22 (13-39) Units/L ALT 15 (7-52) Units/L Alkaline Phosphatase 208 H (34-104) Units/L Albumin 2.5 L (3.5-5.7) g/dL - ABG Interpretation ABG results: PT/INR, D-dimer PT 11.8 Seconds (9.4-12.1) 05/09/19 09:12 D-Dimer 4706 ng/mLFEU (0-500) H 05/09/19 09:12 - Impressions Impressions Fluoroscopy 05/11/19 00:00 IMPRESSION: Status post ORIF for a comminuted right olecranon process fracture. D/ / 05/12/2019 09:55:52 Candelario Ferris MD / [email or web address] Interpreting Provider: Candelario Ferris MD Hip X-Ray 05/11/19 21:29 IMPRESSION: Intact total right hip arthroplasty with expected postsurgical change. D/ / Rakan Hinojosa / Rakan Hinojosa Interpreting Provider: Rakan Hinojosa - VTE Documentation of Mechanical Device: Intermittent pneumatic compression device Consult Discharge Plan - Plan Referrals: Marcus Mendoza DO [Primary Care Provider] - (2) Femoral neck fracture Qualifiers: Encounter type: initial encounter Fracture type: closed Laterality: right Qualified Code(s): S72.001A - Fracture of unspecified part of neck of right femur, initial encounter for closed fracture (3) Elbow fracture, right Qualifiers: Encounter type: initial encounter Fracture type: closed Qualified Code(s): S42.401A - Unspecified fracture of lower end of right humerus, initial encounter for closed fracture (4) Liver cirrhosis Qualifiers: Hepatic cirrhosis type: other cirrhosis Qualified Code(s): K74.69 - Other cirrhosis of liver (7) Anemia Qualifiers: Anemia type: iron deficiency Iron deficiency anemia type: other iron deficiency Qualified Code(s): D50.8 - Other iron deficiency anemias
[2019-05-12] MEDS: 0.9 % Sodium Chloride 1,000 ML IVC SCH (16:08)
--- NOTE | 2019-05-12 21:35 | Orthopedics Progress Note ---
Date of Encounter: 05/12/19 Time of Encounter: 21:33 Subjective Principal diagnosis: Displaced right femoral neck fracture and displaced right olecranon fractur Interval history: 05/08/2019. Patient is having anticipated pain. No significant interval change. Vital signs are stable. Patient is afebrile. Examination remains stable and unchanged. Laboratory data includes a stable hemoglobin, however, patient's platelet count remains low currently at 69,000. Impression: 1. Displaced right femoral neck fracture 2. Displaced right olecranon fracture 3. Thrombocytopenia Recommendation: Anticipate surgery tomorrow. This would include ORIF of the olecranon as well as a hemiarthroplasty of the right hip. We will need to reevaluate the platelet count in the morning. May need to cancel her delay surgery depending upon her platelet count with the possibility of requiring platelet transfusion. 05/09/2019. Surgery was canceled due to thrombocytopenia. Patient has been seen and evaluated by he involved. Patient did receive 2 units of platelets with a increase in platelet count from 66-93. Hemoglobin has unfortunately dropped from 10.5-9.5 in this interval. We will reevaluate platelet count in a.m. Tentatively for surgery tomorrow. Surgery will include both ORIF of the right olecranon as well as a hemiarthroplasty of the right hip. 05/10/2019. Patient is status quo. Surgery was tentatively scheduled for today, unfortunately, operating room is currently working with an unknown start time. Additionally, the patient has thrombocytopenia. Her platelet count has risen from approximately 65,000 to nearly 110,000 with 3 units of platelets rosa sfused. We have rescheduled her surgery for tomorrow. We will have 4 units of platelets immediately available with at least 2 more available quite rapidly. Discussed all these concerns with the patient and family who understand and agree with not proceeding with surgery tonight at such a late hour and anticipating surgical intervention tomorrow afternoon. 05/12/2019. Patient postop day #1 from a hemiarthroplasty of the right hip with abductor repair as well as ORIF of a very complex and comminuted olecranon fracture. Patient is having little pain at this time. Vital signs are stable. Patient is afebrile. Hip dressing clean dry and intact. Right upper extremity is in a long-arm posterior splint. Neurosensory exam is normal. Hemoglobin is 9.1. Platelet count is actually elevated at 113. Impression: POD #1 hemiarthroplasty right hip and ORIF right olecranon Recommendation: PT and OT for ambulation. Patient can be weightbearing as tolerated on the right lower extremity. Unable to bear weight across the right elbow, could potentially trial a platform walker with use of the arm to simply propelled the walker but not lift or weight-bear across the elbow. Recheck labs in a.m. Unclear etiology for the thrombocytopenia seen. No indication for platelet transfusion at this time. Orthopedic status is stable. Objective Vital signs: Vital Signs Temp Pulse Resp BP Pulse Ox 05/12/19 20:26 99.1 F 92 21 129/71 95 05/12/19 16:19 85 16 111/65 93 05/12/19 13:00 88 16 127/65 05/12/19 07:07 97.5 F L 79 16 138/75 92 05/12/19 04:37 98.1 F 83 20 152/69 94 05/12/19 03:21 98.0 F 77 17 147/75 98 05/12/19 00:30 98.0 F 76 18 146/75 98 05/11/19 23:30 98.0 F 79 17 136/68 97 05/11/19 22:30 98.0 F 77 16 131/71 95 05/11/19 22:00 98.1 F 77 15 129/76 95 Intake and Output 05/12/19 05/12/19 05/12/19 07:59 15:59 23:59 Intake Total 100 / 1560 460 / 1560 1000 / 1560 Output Total 250 / 250 Balance -150 / 1310 460 / 1310 1000 / 1310 Intake: IV Fluids 100 / 1200 100 / 1200 1000 / 1200 0.9 % Sodium Chloride 1,000 ML 1000 / 1000 @ 50 mls/hr IVC .Q20H [facility] Rx#: [id number] Ancef 2,000 MG In 0.9 % Sodium 100 / 200 100 / 200 Chloride 100 ML @ 200 mls/hr IVPB Q8HR [facility]TA Rx#:[id number] Oral 0 / 360 360 / 360 Output: Catheter 250 / 250 Other: Meal Lunch Percent of Meal Consumed 30% Weight 66.64 kg Patient Weight 05/12/19 23:59 Weight 66.64 kg Incision: clean and dry - Diagnostic Results Elbow MRI: image reviewed Hip x-ray: image reviewed - Labs CBC & BMP: 05/12/19 03:15 05/12/19 03:15 Labs: Abnormal lab results RBC 3.00 M/mcL (3.82-4.97) L 05/12/19 03:15 Hgb 9.1 g/dL (11.5-15.4) L 05/12/19 03:15 Hct 28.0 % (35.3-44.9) L 05/12/19 03:15 RDW 15.2 % (11.5-14.5) H 05/12/19 03:15 Plt Count 113 K/mcL (140-400) L 05/12/19 03:15 Lymphocytes # 0.5 K/mcL (0.6-4.6) L 05/12/19 03:15 Reactive Lymphocytes Present (Not Present) A 05/07/19 21:20 Toxic Granulation Present (Not Present) A 05/07/19 21:20 Platelet Estimate Decreased (Normal) L 05/07/19 21:20 Fibrinogen 469 mg/dL (169-393) H 05/09/19 09:12 D-Dimer 4706 ng/mLFEU (0-500) H 05/09/19 09:12 Sodium 133 mEq/L (136-145) L 05/10/19 02:30 Chloride 108 mEq/L (98-107) H 05/08/19 06:10 Carbon Dioxide 21 mEq/L (23-29) L 05/08/19 06:10 BUN 31 mg/dL (8-23) H 05/12/19 03:15 Est GFR (Non-Af Amer) 55 (> 60) L 05/07/19 21:20 BUN/Creatinine Ratio 39 (6-26) H 05/12/19 03:15 Glucose 141 mg/dL (70-105) H 05/12/19 03:15 Calcium 8.4 mg/dL (8.6-10.3) L 05/12/19 03:15 Iron < 10 mcg/dL (50-170) L 05/10/19 18:08 Transferrin 174 mg/dL (203-362) L 05/10/19 18:08 Total Bilirubin 1.3 mg/dL (0.3-1.0) H 05/07/19 21:20 AST 46 Units/L (13-39) H 05/07/19 21:20 Alkaline Phosphatase 208 Units/L (34-104) H 05/12/19 03:15 B-Natriuretic Peptide 259 pg/mL (Less than 100) H 05/07/19 21:20 Serum Total Protein 5.6 g/dL (6.4-8.9) L 05/12/19 03:15 Albumin 2.5 g/dL (3.5-5.7) L 05/12/19 03:15 Albumin/Globulin Ratio 0.8 (1.1-2.2) L 05/12/19 03:15 Folate > 22.3 ng/mL (3.0-16.0) H 05/09/19 09:12 Direct Antiglob Test 1+ (Negative) A 05/09/19 09:12 - VTE Documentation of Mechanical Device: Intermittent pneumatic compression device Consult Discharge Plan - Plan Referrals: Marcus Mendoza DO [Primary Care Provider] -
[2019-05-13 01:15] LABS: Kappa Qnt Free Light Chains 18.1 mg/dL (0.33-1.94); Lambda Qnt Free Light Chains 5.26 mg/dL (0.57-2.63)
[2019-05-13] MEDS: *HR* Enoxaparin 40 MG/0.4 ML SYRINGE SQ SCH (06:18)
[2019-05-13] MEDS: Prenatal Vit/FA 1 EACH TABLET PO SCH (08:23)
[2019-05-13] MEDS: Ascorbic Acid 500 MG TABLET PO SCH (08:23)
[2019-05-13] MEDS: Vitamin E 200 UNIT (90MG) CAPSULE PO SCH (08:24)
--- NOTE | 2019-05-13 10:36 | Internal Med Progress Note ---
Hospitalist Progress Note - Encounter Date of Encounter: 05/13/19 Time of Encounter: 10:33 - Subjective Interval History: Doing well this morning. No complaints. Waiting for placement. - Exam Vitals: Temp Pulse Resp BP Pulse Ox 98.1 F 71 14 149/66 93 05/13/19 10:32 05/13/19 10:32 05/13/19 10:32 05/13/19 10:32 05/13/19 10:32 Exam: General: Ill-appearing and in no acute distress HEENT: No erythema of posterior pharynx. No exudates. Lymphatics: No mandibular or cervical lymphadenopathy Cardiovascular: RRR. No murmurs. No chest wall tenderness. Lungs: Clear to auscelltation bilaterally. Regular chest rise. Abdomen: Non-tender. No rebound or gaurding. Nl bowel sounds. Extremities: R knee dressing c/d/i Skin: No rahses, abrasions, or contusions. Nl cap refill. MSK: Pain and limited ROM of R hip. R shoulder in sling. Psych: Nl attention. A&Ox3 Neuro: dredge lever operator II-XII intact. 5/5 strength. Sensation to light touch and pinprick intact. - Assessment and Plan (1) Fall from ground level Current Visit: Yes Status: Acute Assessment and Plan: Patient with no remarkable past medical history presented after a ground-level fall with multiple fractures of the right hip and right upper extremity status post orthopedic surgery for these fractures. - Awaiting SNF placement - likely Monday (2) Femoral neck fracture Current Visit: Yes Status: Acute Assessment and Plan: Found to have a femoral neck fracture after ground level fall and is status post hemiarthroplasty and abductor tendon repair of right hip. - Weightbearing as tolerated on the right lower extremity. - Dressing changes per ortho - LMWH - PT/OT - SNF placement (3) Elbow fracture, right Current Visit: Yes Status: Acute Assessment and Plan: Found to have right olecranon fracture status post open reduction internal fixation. - Unable to bear weight across the right elbow - Dressing changes per ortho - PT/OT - SNF placement (4) Liver cirrhosis Current Visit: Yes Status: Acute Assessment and Plan: Evidence of heterogeneous liver on ultrasound concerning for cirrhosis along with splenomegaly and thrombocytopenia. -Viral hepatitis serologies negative -No history of alcohol abuse -Ferritin within normal limits so hemachromatosis is unlikely -Not of habitus for RAMIRES cirrhosis PLAN: - Autoimmune hepatitis labs pending - MM w/u per onc (5) Thrombocytopenia Current Visit: Yes Status: Acute Assessment and Plan: Likely congestive etiology in setting of liver cirrhosis (6) Splenomegaly Current Visit: Yes Status: Acute Assessment and Plan: Likely congestive etiology in setting of cirrhosis (7) Anemia Current Visit: Yes Status: Acute Assessment and Plan: Per above DVT Prophylaxis: LMWH Internal Medicine: Result - Labs CBC & Chem 7: 05/12/19 03:15 05/12/19 03:15 - ABG Interpretation ABG results: PT/INR, D-dimer PT 11.8 Seconds (9.4-12.1) 05/09/19 09:12 D-Dimer 4706 ng/mLFEU (0-500) H 05/09/19 09:12 - VTE Documentation of Mechanical Device: Intermittent pneumatic compression device Consult Discharge Plan - Plan Referrals: Marcus Mendoza DO [Primary Care Provider] - (2) Femoral neck fracture Qualifiers: Encounter type: initial encounter Fracture type: closed Laterality: right Qualified Code(s): S72.001A - Fracture of unspecified part of neck of right femur, initial encounter for closed fracture (3) Elbow fracture, right Qualifiers: Encounter type: initial encounter Fracture type: closed Qualified Code(s): S42.401A - Unspecified fracture of lower end of right humerus, initial encounter for closed fracture (4) Liver cirrhosis Qualifiers: Hepatic cirrhosis type: other cirrhosis Qualified Code(s): K74.69 - Other cirrhosis of liver (7) Anemia Qualifiers: Anemia type: iron deficiency Iron deficiency anemia type: other iron deficiency Qualified Code(s): D50.8 - Other iron deficiency anemias
--- NOTE | 2019-05-13 10:46 | Orthopedics Progress Note ---
Date of Encounter: 05/13/19 Time of Encounter: 10:43 Subjective Principal diagnosis: Displaced right femoral neck fracture and displaced right olecranon fractur Interval history: 05/08/2019. Patient is having anticipated pain. No significant interval change. Vital signs are stable. Patient is afebrile. Examination remains stable and unchanged. Laboratory data includes a stable hemoglobin, however, patient's platelet count remains low currently at 69,000. Impression: 1. Displaced right femoral neck fracture 2. Displaced right olecranon fracture 3. Thrombocytopenia Recommendation: Anticipate surgery tomorrow. This would include ORIF of the olecranon as well as a hemiarthroplasty of the right hip. We will need to reevaluate the platelet count in the morning. May need to cancel her delay surgery depending upon her platelet count with the possibility of requiring platelet transfusion. 05/09/2019. Surgery was canceled due to thrombocytopenia. Patient has been seen and evaluated by he involved. Patient did receive 2 units of platelets with a increase in platelet count from 66-93. Hemoglobin has unfortunately dropped from 10.5-9.5 in this interval. We will reevaluate platelet count in a.m. Tentatively for surgery tomorrow. Surgery will include both ORIF of the right olecranon as well as a hemiarthroplasty of the right hip. 05/10/2019. Patient is status quo. Surgery was tentatively scheduled for today, unfortunately, operating room is currently working with an unknown start time. Additionally, the patient has thrombocytopenia. Her platelet count has risen from approximately 65,000 to nearly 110,000 with 3 units of platelets rosa sfused. We have rescheduled her surgery for tomorrow. We will have 4 units of platelets immediately available with at least 2 more available quite rapidly. Discussed all these concerns with the patient and family who understand and agree with not proceeding with surgery tonight at such a late hour and anticipating surgical intervention tomorrow afternoon. 05/12/2019. Patient postop day #1 from a hemiarthroplasty of the right hip with abductor repair as well as ORIF of a very complex and comminuted olecranon fracture. Patient is having little pain at this time. Vital signs are stable. Patient is afebrile. Hip dressing clean dry and intact. Right upper extremity is in a long-arm posterior splint. Neurosensory exam is normal. Hemoglobin is 9.1. Platelet count is actually elevated at 113. Impression: POD #1 hemiarthroplasty right hip and ORIF right olecranon Recommendation: PT and OT for ambulation. Patient can be weightbearing as tolerated on the right lower extremity. Unable to bear weight across the right elbow, could potentially trial a platform walker with use of the arm to simply propelled the walker but not lift or weight-bear across the elbow. Recheck labs in a.m. Unclear etiology for the thrombocytopenia seen. No indication for platelet transfusion at this time. Orthopedic status is stable. 05/13/2019. Patient POD #2 hemiarthroplasty right hip and ORIF right olecranon fracture. Patient appears comfortable. Patient having little complaints of pain. Appears somewhat confused. Vital signs are stable. Patient is afebrile. Dressings on the right hip remain clean dry and intact. Right upper extremity splint remains in position without drainage. Impression: POD #2 right hip hemiarthroplasty and ORIF right olecranon fracture, orthopedic status stable Recommendation: As noted patient can be weightbearing as tolerated in the right lower extremity with limited use of the right upper extremity due to the complex comminuted olecranon fracture. Can be discharged to correction facility at any time from an orthopedics point of view. We will need follow-up with me in 2-3 weeks' time.. Objective Vital signs: Vital Signs Temp Pulse Resp BP Pulse Ox 05/13/19 10:32 98.1 F 71 14 149/66 93 05/13/19 06:45 98.9 F 75 14 122/64 92 05/13/19 05:17 99.1 F 80 20 148/69 93 05/12/19 22:42 99.6 F 91 20 126/53 94 05/12/19 20:26 99.1 F 92 21 129/71 95 05/12/19 16:19 85 16 111/65 93 05/12/19 13:00 88 16 127/65 Intake and Output 05/12/19 05/13/19 05/13/19 23:59 07:59 15:59 Intake Total 1750 / 2310 180 / 180 Balance 1750 / 2060 180 / 180 Intake: IV Fluids 1000 / 1200 0.9 % Sodium Chloride 1,000 ML 1000 / 1000 @ 50 mls/hr IVC .Q20H [facility] Rx#: [id number] Oral 750 / 1110 180 / 180 Other: Meal Breakfast Percent of Meal Consumed 10% # Urine Diapers 1 Weight 66.64 kg Patient Weight 05/13/19 23:59 Weight 66.64 kg - Labs CBC & BMP: 05/12/19 03:15 05/12/19 03:15 Labs: Abnormal lab results RBC 3.00 M/mcL (3.82-4.97) L 05/12/19 03:15 Hgb 9.1 g/dL (11.5-15.4) L 05/12/19 03:15 Hct 28.0 % (35.3-44.9) L 05/12/19 03:15 RDW 15.2 % (11.5-14.5) H 05/12/19 03:15 Plt Count 113 K/mcL (140-400) L 05/12/19 03:15 Lymphocytes # 0.5 K/mcL (0.6-4.6) L 05/12/19 03:15 Reactive Lymphocytes Present (Not Present) A 05/07/19 21:20 Toxic Granulation Present (Not Present) A 05/07/19 21:20 Platelet Estimate Decreased (Normal) L 05/07/19 21:20 Fibrinogen 469 mg/dL (169-393) H 05/09/19 09:12 D-Dimer 4706 ng/mLFEU (0-500) H 05/09/19 09:12 Sodium 133 mEq/L (136-145) L 05/10/19 02:30 Chloride 108 mEq/L (98-107) H 05/08/19 06:10 Carbon Dioxide 21 mEq/L (23-29) L 05/08/19 06:10 BUN 31 mg/dL (8-23) H 05/12/19 03:15 Est GFR (Non-Af Amer) 55 (> 60) L 05/07/19 21:20 BUN/Creatinine Ratio 39 (6-26) H 05/12/19 03:15 Glucose 141 mg/dL (70-105) H 05/12/19 03:15 Calcium 8.4 mg/dL (8.6-10.3) L 05/12/19 03:15 Iron < 10 mcg/dL (50-170) L 05/10/19 18:08 Transferrin 174 mg/dL (203-362) L 05/10/19 18:08 Total Bilirubin 1.3 mg/dL (0.3-1.0) H 05/07/19 21:20 AST 46 Units/L (13-39) H 05/07/19 21:20 Alkaline Phosphatase 208 Units/L (34-104) H 05/12/19 03:15 B-Natriuretic Peptide 259 pg/mL (Less than 100) H 05/07/19 21:20 Serum Total Protein 5.6 g/dL (6.4-8.9) L 05/12/19 03:15 Albumin 2.5 g/dL (3.5-5.7) L 05/12/19 03:15 Albumin/Globulin Ratio 0.8 (1.1-2.2) L 05/12/19 03:15 Folate > 22.3 ng/mL (3.0-16.0) H 05/09/19 09:12 Direct Antiglob Test 1+ (Negative) A 05/09/19 09:12 - VTE Documentation of Mechanical Device: Intermittent pneumatic compression device Consult Discharge Plan - Plan Referrals: Marcus Mendoza DO [Primary Care Provider] -
--- NOTE | 2019-05-13 14:29 | Oncology Inp Progress Note ---
<RodBoom - Last Filed: 05/13/19 16:28> Date of Encounter: 05/13/19 Time of Encounter: 16:28 Oncology: Obj Data - Labs CBC & Chem 7: 05/12/19 03:15 05/12/19 03:15 Consult Discharge Plan - Plan Referrals: Marcus Mendoza DO [Primary Care Provider] - Inpatient Charges Provider: Dr. Pedro Velasco Follow up - Inpatient: [id number] - Attending Attestation I examined this patient and my medical decision-making was reviewed with the Advanced Practice Nurse. I agree with the documented findings, disposition and treatment plan as described except to the extent set forth below. Patient doing well post-op Fe < 10, Ferritin 118, transferrin 174; will administer venofer 300 mg IV Will check a CEA and AFP Plts being transfused per ortho recommendations post-op <AguileraFlaquita - Last Filed: 05/13/19 17:29> Date of Encounter: 05/13/19 (1) Thrombocytopenia Current Visit: Yes Status: Acute Assessment and plan: Initially consulted for preop recommendations/management of thrombocytopenia prior to surgery Currently POD #2 right hip hemiarthroplasty and ORIF right olecranon fracture US of the abdomen notes findings concerning for hepatocellular disease with he terogeneous liver and splenomegaly Hepatitis, B12, LDH, retic and folate unremarkable. Smear unremarkable. 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 Pain well controlled. Family at bedside have noted intermittent periods of confusion since surgery but this appears to be improving. Planning for outpatient swing bed. Plt count is holding well since transfusions, denies s/s bleeding. - Constitutional General appearance: cooperative, no acute distress, no febrile - Head Head exam: Present: atraumatic - ENT ENT exam: Present: mucous membranes moist, normal oropharynx - Respiratory Respiratory exam: Present: CTAB. Absent: respiratory distress - Cardiovascular Cardiovascular exam: Present: RRR - GI/Abdominal GI/Abdominal exam: Present: normal bowel sounds, soft. Absent: tenderness - Extremities Exam Extremities exam: Absent: calf tenderness Additional comments: Right arm sling, dressing to right hip D&I - Neurological Exam Neurological exam: Present: alert, oriented X3, no focal deficits, strengths equal and symetr throughout - Psychiatric Psychiatric exam: Present: normal affect, normal mood - Skin Skin exam: Present: dry, normal color, warm Oncology: Obj Data - Labs CBC & Chem 7: 05/12/19 03:15 05/12/19 03:15 Inpatient Charges Provider: Dr. Pedro Velasco
[2019-05-13 16:53] LABS: Bilirubin,Urine Negative (Negative); Blood,Urine Negative (Negative); Clarity,Urine Cloudy (Clear); Color,Urine Dark Yellow (Yellow); Glucose,Urine (UA) Normal (Normal); Ketones,Urine Negative (Negative); Leukocyte Esterase,Urine Moderate (Negative); Nitrite,Urine Negative (Negative); PH,Urine 5.5 pH Units (5.0-8.0); Protein,Urine Trace mg/dL (Neg-Trace); Specific Gravity,Urine 1.023 (1.010-1.025); Urobilinogen,Urine Normal (Normal)
[2019-05-13 16:56] LABS: Bacteria,Urine None Seen per hpf (None-Few); Hyaline Casts,Urine None Seen per lpf (None-Few); Squamous Epithelial Cell,Urine Many per lpf (None-Few); WBC,Urine 30-50 per hpf (0-3)
[2019-05-13] MEDS: *HR* HYDROcodone/Acet 5/325 mg TABLET PO PRN (17:07)
[2019-05-13] MEDS: 0.9 % Sodium Chloride 1,000 ML IVC SCH (18:28)
[2019-05-13] MEDS: *HR* OxyCODONE Immed Rel 5 MG TABLET PO PRN (20:56)
[2019-05-13] MEDS ORDERED: cefTRIAXone 2,000 MG in Water for inj. (sterile) 20 ML IVP SCH (22:00)
[2019-05-13] MEDS ORDERED: Azithromycin 500 MG in 0.9 % Sodium Chloride 250 ML IVPB SCH (22:00)
[2019-05-14 01:38] LABS: Hematocrit 24.5 % (35.3-44.9); Mean Corpuscular HGB Conc 31.8 g/dL (31.6-35.5); Mean Corpuscular Hemoglobin 29.2 pg (28.0-33.3); Mean Corpuscular Volume 91.8 fL (83.0-100.0); Mean Platelet Volume 10.1 fL (9.4-12.4); Platelet Count 103 K/mcL (140-400); Red Blood Count 2.67 M/mcL (3.82-4.97); Red Cell Distribution Width 15.1 % (11.5-14.5); White Blood Count 7.7 K/mcL (4.3-11.1)
[2019-05-14 01:45] LABS: Hemoglobin 7.8 g/dL (11.5-15.4)
[2019-05-14 02:03] LABS: BUN/Creatinine Ratio 40 (6-26); Blood Urea Nitrogen 28 mg/dL (8-23); Carbon Dioxide 23 mEq/L (23-29); Chloride 105 mEq/L (98-107); Glucose 113 mg/dL (70-105); Osmolality,Calculated 286 (280-300); Sodium 135 mEq/L (136-145); eGFR For African Americans > 60 (> 60); eGFR For Non-African Americans > 60 (> 60)
[2019-05-14] MEDS ORDERED: Acetaminophen IV 1,000 MG/100 ML INFUS..BTL IVPB ONE (03:33)
[2019-05-14] MEDS: *HR* Enoxaparin 40 MG/0.4 ML SYRINGE SQ SCH (05:36)
[2019-05-14] MEDS: Ascorbic Acid 500 MG TABLET PO SCH (09:29)
[2019-05-14] MEDS: Vitamin E 200 UNIT (90MG) CAPSULE PO SCH (09:29)
[2019-05-14] MEDS: Prenatal Vit/FA 1 EACH TABLET PO SCH (09:29)
[2019-05-14 09:40] LABS: Immunoglobulin A 139 mg/dL (68-408); Immunoglobulin G 1510 mg/dL (768-1632); Immunoglobulin M 235 mg/dL (35-263)
[2019-05-14 13:22] LABS: Hematocrit 29.3 % (35.3-44.9); Hemoglobin 9.2 g/dL (11.5-15.4); Mean Corpuscular HGB Conc 31.4 g/dL (31.6-35.5); Mean Corpuscular Hemoglobin 30.2 pg (28.0-33.3); Mean Corpuscular Volume 96.1 fL (83.0-100.0); Mean Platelet Volume 10.2 fL (9.4-12.4); Platelet Count 148 K/mcL (140-400); Red Blood Count 3.05 M/mcL (3.82-4.97); Red Cell Distribution Width 15.5 % (11.5-14.5); White Blood Count 9.6 K/mcL (4.3-11.1)
--- NOTE | 2019-05-14 14:15 | Discharge Summary ---
Orders not resulted at time of discharge: Pending orders 05/12/19 17:15 Mitochondrial M2 Antibody, IgG Routine 05/12/19 17:20 ZACK IgG HATTIE rflx IFA Routine Anti-DNA DS, IgG with reflex Routine MPO/PR3 (ANCA) Antibodies Routine Smooth Muscle Antibody, IgG Routine 05/13/19 16:37 Culture,Urine [RM] Stat 05/14/19 01:02 AFP Tumor Marker Non- AM 0400 Date of Encounter: 05/14/19 Time of Encounter: 14:00 - Discharge Diagnosis (1) Fall from ground level Priority: Primary Status: Acute (2) Femoral neck fracture Priority: Secondary Status: Acute Qualifiers: Encounter type: initial encounter Fracture type: closed Laterality: right Qualified Code(s): S72.001A - Fracture of unspecified part of neck of right femur, initial encounter for closed fracture (3) Elbow fracture, right Priority: Secondary Status: Acute Qualifiers: Encounter type: initial encounter Fracture type: closed Qualified Code(s): S42.401A - Unspecified fracture of lower end of right humerus, initial encounter for closed fracture (4) Liver cirrhosis Priority: Secondary Status: Acute Qualifiers: Hepatic cirrhosis type: other cirrhosis Qualified Code(s): K74.69 - Other cirrhosis of liver (5) Thrombocytopenia Priority: Secondary Status: Acute (6) Splenomegaly Priority: Secondary Status: Acute (7) Anemia Priority: Secondary Status: Acute Qualifiers: Anemia type: iron deficiency Iron deficiency anemia type: other iron deficiency Qualified Code(s): D50.8 - Other iron deficiency anemias Hospital course: Ms. Wisdom is a 78 year old female with no remarkable past medical history presented after a ground-level fall with multiple fractures of the right hip and right upper extremity status post orthopedic surgery for these fractures (hemiarthroplasty and abductor tendon repair of right hip, open reduction internal fixation of R elbow). Started on calcium and vitamin D supplementation. Post-op course complicated by PNA and patient was started on Levaquin that she will continue for 5 days. Also c/b stage II decubitus ulcers of coccyx (2) due to prolonged period of bedrest. Was also found to have newly diagnosed cirrhosis of unknown etiology (no hx of alc abuse, viral panel neg, autoimmune hep labs pending). -Recommend patient be referred to GI as an outpatient to f/u autoimmune labs. -Will need to be on LMWH for 1 month at [facility] -Recommend f/u CBC 05/20 -R Hip: Change dressing every other day until she follows up with ortho Weightbearing as tolerated on the right lower extremity. PT/OT -R Elbow: Leave in sling with cast on Unable to bear weight across the right elbow, could trial platform walker with use of the arm to propel the walker but not lift or weight-bear across the elbow. OT/OT -Decubitus Ulcer: Apply barrier cream bid Apply mepilex dressing -Patient will f/u with Kaleigh kaplan Dr. in 2-3 weeks after discharge - Time Spent with Patient Total time spent providing and/or coordinating discharge services: - Discharge Medications Prescriptions: New Enoxaparin [Lovenox] 40 mg SQ 0600 syringe OxyCODONE Immed Rel [Roxicodone 5 MG] 5 mg PO Q6H PRN 7 Days #15 tablet PRN Reason: Severe Pain Cholecalciferol (Vitamin D3) [Vitamin D] 2,000 unit PO Q24H #30 capsule levoFLOXacin [Levaquin] 750 mg PO DAILY 4 Days #4 tablet Continued Calcium Carbonate [Calcium] 600 mg PO BID Vit/Iron Fumarate/FA [ Tablet] 1 each PO DAILY Vitamin E Acid Succinate [Vitamin E] 400 units PO DAILY Cyanocobalamin (B-12) [Vitamin B12] 1,000 mcg IM QMONTH Levothyroxine [Synthroid] 125 mcg PO 0630 Discontinued Ascorbic Acid [Vitamin C] 1,000 mg PO DAILY Biotin 1 mg PO DAILY Home Medications: Calcium Carbonate [Calcium] 600 mg PO BID 12/14/16 [History] Vit/Iron Fumarate/FA [ Tablet] 1 each PO DAILY 12/14/16 [History] Vitamin E Acid Succinate [Vitamin E] 400 units PO DAILY 12/14/16 [History] Cyanocobalamin (B-12) [Vitamin B12] 1,000 mcg IM QMONTH 05/08/19 [History] Levothyroxine [Synthroid] 125 mcg PO 0630 05/08/19 [History] Cholecalciferol (Vitamin D3) [Vitamin D] 2,000 unit PO Q24H #30 capsule 05/14/19 [Rx] Enoxaparin [Lovenox] 40 mg SQ 0600 syringe 05/14/19 [Rx] OxyCODONE Immed Rel [Roxicodone 5 MG] 5 mg PO Q6H PRN 7 Days #15 tablet 05/14/19 [Rx] levoFLOXacin [Levaquin] 750 mg PO DAILY 4 Days #4 tablet 05/14/19 [Rx] Allergies/Adverse Reactions: Allergy/AdvReac Type Severity Reaction Status Date / Time No Known Allergies Allergy Verified 05/08/19 09:40 Date of admission: 05/07/19 16:26 Primary care physician: Marcus Mendoza DO Consults: 05/07/19 14:45 Consult to Pastoral Services [CONS] Routine Comment: Consult to Cash Specialist [CONS] Routine Reason for SW Consult: D/c planning 05/07/19 15:40 Consult to Orthopedic Surgery [CONS] Routine Consulting Provider: Orthopedic and Sports Medicine Reason for Consult: right elbow and hip fracture Call Completed: No 05/09/19 07:08 Consult to Oncology Hematology [CONS] Routine Consulting Provider: Amy Monzon Reason for Consult: Patient is scheduled for surgery today, however platelets came back at 65 in a.m. labs. This is a drop from 77 on 05/07. Discussed pt. and new platelet count w/Dr. James who wishes to have Hematology Oncology consult to review the patient prior to proceeding with surgery. Call Completed: Yes 05/11/19 21:29 Consult to Occupational Therapy [CONS] Routine Comment: Evaluate, develop and implement POC Reason for Consult: ADL Does patient have active BEDREST order?: No Is patient medically & hemodynamically stable?: Yes Consult to Physical Therapy [CONS] Routine Comment: Evaluate, develop and implement POC Reason for Consult: Hip Fx Does patient have active BEDREST order?: No Is patient medically & hemodynamically stable?: Yes - Constitutional Vitals: Temp Pulse Resp BP Pulse Ox 98.4 F 81 18 134/64 96 05/14/19 12:04 05/14/19 12:04 05/14/19 12:04 05/14/19 12:04 05/14/19 12:04 Exam: General: Ill-appearing and in no acute distress HEENT: No erythema of posterior pharynx. No exudates. Lymphatics: No mandibular or cervical lymphadenopathy Cardiovascular: RRR. No murmurs. No chest wall tenderness. Lungs: Clear to auscelltation bilaterally. Regular chest rise. Abdomen: Non-tender. No rebound or gaurding. Nl bowel sounds. Extremities: R knee dressing c/d/i Skin: Two small stage II decubitus ulcers of coccyx MSK: Pain and limited ROM of R hip with bandage in place c/d/i. R shoulder in sling. Psych: Nl attention. A&Ox3 Neuro: banana room cutter II-XII intact. 5/5 strength. Sensation to light touch and pinprick intact. - Patient Status Disposition: Transfer Hospital Swing Bed Condition: Good Functional capacity at discharge: uses cane/walker Overall status at discharge: patient is progressing back to baseline - Discharge Instructions Follow Up With: Marcus Mendoza DO [Primary Care Provider] - - Diet and Activity Activity: as per physical therapy Diet: advance to your usual diet, low salt diet - VTE Documentation of Mechanical Device: Intermittent pneumatic compression device
[2019-05-14 14:34] VITALS: BP 136/68
--- NOTE | 2019-05-14 14:45 | Physician Discharge Referral ---
ExtendedCare Referral Info [facility] Provider in Charge: Ayden Salgado MD Provider in Charge after Transfer: PCP Institutional Level of Care: Skilled - Diagnosis (1) Fall from ground level Priority: Primary Status: Acute (2) Femoral neck fracture Priority: Secondary Status: Acute (3) Elbow fracture, right Priority: Secondary Status: Acute (4) Liver cirrhosis Priority: Secondary Status: Acute (5) Thrombocytopenia Priority: Secondary Status: Acute (6) Splenomegaly Priority: Secondary Status: Acute (7) Anemia Priority: Secondary Status: Acute Prognosis: Good Aware of Diagnosis: Patient Aware of Prognosis: Patient - Transfer Medications Prescriptions: levoFLOXacin [Levaquin] 750 mg PO DAILY 4 Days #4 tablet Polyethylene Glycol 3350 [MiraLAX] 17 gm PO BID #60 powd.pack OxyCODONE Immed Rel [Roxicodone 5 MG] 5 mg PO Q6H PRN 7 Days #15 tablet PRN Reason: Severe Pain Cholecalciferol (Vitamin D3) [Vitamin D] 2,000 unit PO Q24H #30 capsule Home Medications: Calcium Carbonate [Calcium] 600 mg PO BID 12/14/16 [History] Vit/Iron Fumarate/FA [ Tablet] 1 each PO DAILY 12/14/16 [History] Vitamin E Acid Succinate [Vitamin E] 400 units PO DAILY 12/14/16 [History] Cyanocobalamin (B-12) [Vitamin B12] 1,000 mcg IM QMONTH 05/08/19 [History] Levothyroxine [Synthroid] 125 mcg PO 0630 05/08/19 [History] Cholecalciferol (Vitamin D3) [Vitamin D] 2,000 unit PO Q24H #30 capsule 05/14/19 [Rx] Enoxaparin [Lovenox] 40 mg SQ 0600 syringe 05/14/19 [Rx] OxyCODONE Immed Rel [Roxicodone 5 MG] 5 mg PO Q6H PRN 7 Days #15 tablet 05/14/19 [Rx] Polyethylene Glycol 3350 [MiraLAX] 17 gm PO BID #60 powd.pack 05/14/19 [Rx] levoFLOXacin [Levaquin] 750 mg PO DAILY 4 Days #4 tablet 05/14/19 [Rx] Allergies/Adverse Reactions: Allergy/AdvReac Type Severity Reaction Status Date / Time No Known Allergies Allergy Verified 05/08/19 09:40 - Respiratory Orders Smoking Cessation: Smoking cessation has been advised. For more information, call the [place] Tobacco Quit Line at 9-421-UKCE-NOW. - Lab Orders Lab Orders: CBC (05/20) - Ancillary Orders May use pressure relief devices daily prn - Mobility Orders Chair, Ambulate - Rehabiliation Orders Rehab Potential: Good Rehab Orders: Evaluation for Physical Therapy, Evaluation for Occupational Therapy - Treatments Skin tear care topically daily PRN per policy, May check for fecal impaction rectally daily PRN, Fleet enema rectally every other day PRN cleansing purposes - Diet Orders No Added Salt (JAYESH) CERTIFICATION: I certify that the transfer of the above named patient to an Extended Care Facility is necessary for the continuing treatment of the diagnosis listed. The above information is true and accurate reflection of patient's current condition. Brooks Salgado MD Confidential - Redisclosure prohibited without a patient's written consent.
[2019-05-14] MEDS: *HR* OxyCODONE Immed Rel 5 MG TABLET PO PRN (17:08)
[2019-05-15 00:18] LABS: Alpha 2 Globulin (PEP) 0.94 g/dL (0.48-1.05); Beta Globulin (PEP) 0.59 g/dL (0.48-1.10)
[2019-05-15 09:45] LABS: IFE Reflexed IFE Done
[2019-05-15 12:42] LABS: Immunoglobulin A 139 mg/dL (68-408); Immunoglobulin G 1510 mg/dL (768-1632); Immunoglobulin M 235 mg/dL (35-263)
[2019-05-16 10:19] LABS: Serine Protease-3 Antibody 1 AU/mL (0-19)
[2019-05-16 10:20] LABS: ANA IgG by ELISA DETECTED (None Detected)
[2019-05-17 18:05] LABS: ANA HEp-2 IgG IFA <1:80 (<1:80)
[2019-05-18 11:23] LABS: Cytoplasmic Pattern Titer >1:2560
== END 2019-05-14 17:15 | disposition other institution (70) | DRG 469 ==
LOC: 3NENU → SUATTDRO 16:26 → 3NENU 05-12 14:49
PROVIDERS: ADMIT Internal Medicine Nephrology; ATTEND Internal Medicine